=== PATIENT | female | born 1935 | race Caucasian/White ===

== ENCOUNTER 2017-07-09 09:07 | Inpatient (IN) | payer OTHER ==
[~2017-07-09] VITALS: Ht 152.4 cm; Wt 71.7 kg
--- NOTE | 2017-07-09 09:16 | ED MVC/FALL/TRAUMA COMPLAINT ---
History of Present Illness General Chief Complaint: Fall Stated Complaint: BIBA C/C FALL LAST NIGHT Source: family, old records, EMS Exam Limitations: confusion Allergies Coded Allergies: NO KNOWN ALLERGIES (08/12/11) Reconcile Medications No Known Home Medications Triage Nurses Notes Reviewed? yes Onset: Abrupt Duration: constant Timing: recent history Severity: moderate Severity Numbers: 5 Injuries/Fall Location: head Method of Injury: direct blow, fall Loss of Consciousness: unsure HPI: Patient is a 81-year-old female with past medical history of dementia and at baseline confusion, hypertension and anxiety who lives in a private residence by herself in which she is brought in by ambulance for concerns of an unwitnessed fall Patient arrives with son who is the power of immigration attorney states that yesterday at 5 PM he left patient's home in which she was at her baseline and no incident occurred and today they arrived at her residency and noted her to be on the floor in her underwear in the bathroom for an unknown period of time noted bruising to the left forehead and ecchymosis and skin tears to her left and right forearms and elbow. Family indicates that she was a little more confused than her baseline on arrival however after EMS arrived she was at her baseline. History is limited due to patient having dementia Cervical collar was placed by EMS Patient denies any pain (Jhonny Galloway) Vital Signs & Intake/Output Vital Signs & Intake/Output Vital Signs Date Time Temp Pulse Resp B/P B/P Pulse O2 O2 Flow FiO2 Mean Ox Delivery Rate 07/09 1407 98 18 148/90 96 07/09 1128 97.7 85 20 150/90 96 Room Air 07/09 0917 98.6 76 16 147/102 96 (Katia CARTWRIGHT,Caleb Fermin) Past History Travel History Traveled to [place] past 21 day No Medical History Any Pertinent Medical History? see below for history Other Medical Hx: Dementia, hypertension and anxiety Tetanus Vaccine: 08/12/11 Surgical History Surgical History: non-contributory Psychosocial History What is your primary language Tunisian Tobacco Use: Current Not Daily Family History Hx Contributory? No (Jhonny Galloway) Review of Systems Review of Systems Constitutional: Reports: no symptoms. Eyes: Reports: no symptoms. Ears, Nose, Throat, Mouth: Reports: no symptoms. Respiratory: Reports: no symptoms. Cardiovascular: Reports: no symptoms. Gastrointestinal/Abdominal: Reports: no symptoms. Genitourinary: Reports: no symptoms. Musculoskeletal: Reports: see HPI. Skin: Reports: see HPI. Neurological/Psychological: Reports: no symptoms. All Other Systems: Reviewed and Negative (Jhonny Galloway) Physical Exam Physical Exam General Appearance: no apparent distress, alert, comfortable Head: evidence of injury Eyes: Bilateral: normal appearance, PERRL, EOMI. Ears, Nose, Throat, Mouth: hearing grossly normal, moist mucous membrane, Tympanic normal Neck: normal inspection, no midline tenderness, cERVICAL COLLAR IN PLACE Respiratory: normal breath sounds, chest non-tender Cardiovascular: regular rate/rhythm Gastrointestinal: normal bowel sounds, soft, non-tender Extremities: evidence of injury Neurologic/Psych: no motor/sensory deficits, awake Comments: Alert and oriented [address] P[address] Right shoulder decreased active range of motion to all his point tenderness noted (Please note that family states that "she always has chronic shoulder pain and decreased range of motion" On exam no signs of trauma Right elbow mild ecchymosis to lateral epicondyle full active range of motion Right wrist and hand normal inspection nontender Left shoulder normal inspection nontender full active range of motion Left elbow and proximal forearm noted ecchymosis and superficial 2 skin tears no active bleeding generalized point tenderness noted Left wrist and hand normal inspection nontender Bilateral hips normal inspection nontender patient able to perform straight leg raise with no pain Left knee normal inspection generalized point tenderness noted Right knee normal inspection nontender Bilateral ankles normal inspection nontender Core Measures ACS in differential dx? Yes CVA/TIA Diagnosis No Sepsis Present: No Sepsis Focused Exam Completed? No (Jhonny Galloway) Progress Differential Diagnosis: abd injury, C/T/L spine injury, ext injury, ICH, pelvis injury, pnemothorax, spinal cord injury Diagnostic Imaging: Viewed by Me: CT Scan. Radiology Impression: SEE COMMENTS Initial ED EKG: normal p-waves, normal QRS complex, 78 BPM Comments: PATIENT: JUSTYN WATSON PRESENT AGE: 81 PATIENT ACCOUNT NO: [id number] : 35 LOCATION: [facility] ORDERING PHYSICIAN: Jhonny ESTRELLA SERVICE DATE: 07/09/17-1001 EXAM TYPE: RAD - XRY-ELBOW 3 OR MORE VIEWS, L; XRY-ELBOW 3 OR MORE VIEWS, R; XRY -FOREARM, LEFT; XRY-KNEE, LEFT; XRY-SHOULDER COMPLETE-RIGHT EXAMINATION: CR SHOULDER, RIGHT CR ELBOW, RIGHT CR ELBOW, LEFT CR FOREARM, LEFT CR KNEE, LEFT CLINICAL INFORMATION: Unwitnessed fall. Right shoulder, bilateral elbow, and left knee pain. COMPARISON: None TECHNIQUE: 3 views of the right shoulder. 4 views of the right elbow. 3 views of the left elbow. 2 views of the left forearm. 4 views of the left knee. FINDINGS: Right shoulder: Diffuse osteopenia. No acute fracture or dislocation. Superior subluxation of the humeral head seen with abutment of the acromion, suggesting chronic underlying rotator cuff tear. Prominent degenerative change at the acromioclavicular joint with predominantly nonbursal surface spurring associated soft tissue swelling and cystic changes and sclerotic changes across the acromioclavicular joint seen. Included right ribs grossly unremarkable. Right elbow: Diffuse osteopenia. Evaluation limited by IV line. Slight prominence of the anterior fat pad is seen without definite sail sign visualized. No displaced fracture is noted. No unintended radiopaque foreign body in the soft tissues. Left elbow/forearm: Diffuse osteopenia. No acute fracture or dislocation seen involving the left elbow or the left forearm. No abnormal elevation of the fat pad noted. Mild chondrocalcinosis in the radiocapitellar joint. Prominent irregular scalloping of the anterior skin surface of the left forearm is seen, possibly due to soft tissue laceration versus extrinsic compression by overlying bandage. No radiopaque foreign body is seen. Subcutaneous emphysema along the anterior soft tissues of the forearm cannot be excluded. Left knee: Diffuse osteopenia. No acute fracture or dislocation. Severe degenerative change in the patellofemoral compartment with joint space narrowing, spurring and cystic changes seen. Moderate degenerative changes in the medial and lateral femoral compartments. Vacuum phenomenon seen in the lateral femoral compartment. Chondrocalcinosis seen in the medial femoral compartment. Small suprapatellar knee joint effusion suspected though poorly visualized due to slight obliquity of the film. Moderate atherosclerotic calcifications of the arteries in the distal thigh and proximal calf. IMPRESSION: 1. Diffuse osteopenia. No acute fracture of the right shoulder, right elbow, left elbow/forearm and left knee. 2. Suspect extensive soft tissue injury to the anterior left forearm with associated subcutaneous emphysema. Close clinical correlation is requested. No radiopaque foreign body is seen. 3. Prominent degenerative changes in the right acromioclavicular joint and superior subluxation of the right humeral head, suggesting underlying chronic rotator cuff tear. 4. Mild chondrocalcinosis in the left radiocapitellar joint. 5. Moderate to severe degenerative changes in the left knee. DICTATED BY: Thu Richards MD DATE/TIME DICTATED:07/09/171436 LAUNDRY PRESS OPERATOR:MILLER DATE/TIME TRANSCRIBED:07/09/171436 PATIENT: JUSTYN WATSON PRESENT AGE: 81 PATIENT ACCOUNT NO: [id number] : 35 LOCATION: ER ORDERING PHYSICIAN: Jhonny ESTRELLA SERVICE DATE: 07/09/17 EXAM TYPE: CAT - CT CHEST WO IV CONTRAST EXAMINATION: CT CHEST WITHOUT CONTRAST CLINICAL INFORMATION: Chest pain status-post fall. COMPARISON: None. TECHNIQUE: Multidetector volumetric CT imaging of the chest was done. Axial MIP volume rendering provided. Sagittal and coronal reformatted images were obtained. DLP: 625.23 mGy-cm FINDINGS: AQUATIC FACILITY MANAGER: The lungs are grossly clear. There is a moderate thoracic dextroscoliosis. LUNGS: There is mild dependent hypoaeration. No infiltrate or groundglass opacity is seen. There is no generalized increase in peripheral interlobular septal markings. There are mild centrilobular and paraseptal emphysematous changes. The central airways appear patent. MEDIASTINUM: There are thyroid calcifications. There is atherosclerotic change of the great vessel origins, thoracic aorta and coronary arteries. The ascending thoracic aorta is ectatic, measuring 4.3 x 4.2 cm. No thoracic aortic aneurysm is seen. PLEURA: There is no pleural effusion. No pleural mass or thickening. AXILLA: No lymphadenopathy. OSSEOUS STRUCTURES: There is multi-level marked thoracic spondylosis, with an appearance suggesting possible DISH (diffuse idiopathic skeletal hyperostosis). There is an old, healed fracture of the left eighth rib. No acute or aggressive osseous abnormality is seen. IMPRESSION: 1. The lungs appear clear. No infiltrate, contusion, pneumothorax or pleural effusion is seen. 2. There are mild centrilobular paraseptal emphysematous changes. 3. There is no acute fracture. 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 4. There is ectasia of the ascending thoracic aorta, without elva aneurysm formation. Consider surveillance imaging. DICTATED BY: Moe Jimenes MD DATE/TIME DICTATED:07/09/171131 LAUNDRY PRESS OPERATOR:MILLER DATE/TIME TRANSCRIBED:07/09/171131 CONFIDENTIAL, DO NOT COPY WITHOUT APPROPRIATE AUTHORIZATION. <Electronically signed in Other Vendor System> SIGNED BY: Moe Jimenes MD 07/09/17 1143 PATIENT: JUSTYN WATSON PRESENT AGE: 81 PATIENT ACCOUNT NO: [id number] : 35 LOCATION: [facility] ORDERING PHYSICIAN: Jhonny ESTRELLA SERVICE DATE: 07/09/17 EXAM TYPE: CAT - CT ABD & PELVIS W/O IV CONTRAS EXAMINATION: CT ABDOMEN AND PELVIS WITHOUT CONTRAST CLINICAL INFORMATION: Pain status post-post trauma. COMPARISON: CT abdomen and pelvis dated 05/11/2006 (report only). TECHNIQUE: Multidetector volumetric imaging was performed from the superior aspect of the liver through the pubic symphysis. Sagittal and coronal reformatted images were obtained on the technologist's workstation. DLP: 625.23 mGy-cm (chest abdomen and pelvis) FINDINGS: LIVER, GALLBLADDER, AND BILIARY TREE: The liver is normal in size, shape, and attenuation. Within the anterior segment of the right hepatic lobe (4:386), there is a 6 mm low-attenuation probable cyst, which is too small fully characterize with CT. No biliary ductal dilatation is present. The gallbladder is contracted or surgically absent. PANCREAS: Unremarkable. SPLEEN: Unremarkable. ADRENAL GLANDS: Unremarkable. KIDNEYS AND URETERS: The kidneys are normal in size, shape, and attenuation. No hydronephrosis, hydroureter, or calculi seen. There are bilateral renal vascular calcifications. There are subcentimeter low-attenuation exophytic left renal lower pole probable cysts, too small fully characterize with CT. No perinephric stranding. BLADDER: Unremarkable. GASTROINTESTINAL TRACT: There is moderate diverticulosis, without acute diverticulitis. No obstruction, free intraperitoneal air or abscess is seen. The vermiform appendix is not identified with certainty and may be surgically absent. ABDOMINAL WALL: No significant hernia is appreciated. There is very mild anasarca. LYMPH NODES: Normal. VASCULAR: There is marked aortoiliac atherosclerotic change. No abdominal aortic aneurysm is seen. PELVIC VISCERA: There is a calcified uterine fibroid. No adnexal mass is seen. OSSEOUS STRUCTURES: There is multi-level marked lumbar spondylosis, degenerative disc disease and facet arthropathy. There are degenerative changes of the hips. No acute or aggressive osseous abnormality is seen. IMPRESSION: 1. No acute traumatic injuries seen. Of note, the evaluation is performed without the benefit of intravenous contrast, with limited sensitivity for the evaluation of subtle parenchymal laceration. 2. There are subcentimeter low-attenuation hepatic and left renal probable cysts, too small fully characterize with CT. If of clinical concern (i.e. history of hepatocellular disease, known malignancy or hematuria), consider further evaluation with ultrasound. 3. The gallbladder is contracted or surgically absent. Question prior appendectomy. Please correlate with the patient's past surgical history. 4. There is moderate diverticulosis, without acute diverticulitis. 5. There is uterine fibroid disease. 6. There are lumbar degenerative changes. DICTATED BY: Moe Jimenes MD DATE/TIME DICTATED:07/09/171140 LAUNDRY PRESS OPERATOR:MILLER DATE/TIME TRANSCRIBED:07/09/171140 CONFIDENTIAL, DO NOT COPY WITHOUT APPROPRIATE AUTHORIZATION. <Electronically signed in Other Vendor System> SIGNED BY: Moe Jimenes MD 07/09/17 1155 PATIENT: JUSTYN WATSON PRESENT AGE: 81 PATIENT ACCOUNT NO: [id number] : 35 LOCATION: [facility] ORDERING PHYSICIAN: Jhonny ESTRELLA SERVICE DATE: 07/09/17 EXAM TYPE: CAT - CT CERV SPINE WO IV CONTRAST; CT HEAD WO IV CONTRAST EXAMINATION: NONCONTRAST HEAD CT NONCONTRAST CERVICAL SPINE CT INDICATION INFORMATION: Fall with right-sided head strike. COMPARISON: 03/31/2009 TECHNIQUE: Separate noncontrast CT examinations of the head and cervical spine were performed. Coronal and sagittal images were created for each examination at the technologist workstation. DLP: 1537 mGy-cm FINDINGS: Head: There is no evidence of acute intracranial hemorrhage or territorial infarction. No abnormal mass effect or midline shift is seen. Bender to white matter differentiation is well preserved. No extra-axial fluid collections are identified. No hydrocephalus. Proportional prominence of the ventricles and sulcal spaces is consistent with mild volume loss. Patchy periventricular and deep white matter hypoattenuation is consistent with mild small vessel ischemic changes. There is prominent left frontal soft tissue swelling with subgaleal hematoma.. The mastoid air cells and visualized portions of the paranasal sinuses are well aerated. Cervical spine: There is anatomic alignment of the vertebral bodies and posterior elements. The atlantoaxial and atlantooccipital articulations are intact. Vertebral body heights are maintained. There is multilevel intervertebral disc space narrowing with endplate osteophyte formation and facet arthropathy. No evidence of acute fracture. No prevertebral soft tissue swelling. Centrilobular emphysema seen at the lung apices.. Multiple small nodules are seen in the thyroid gland. IMPRESSION: 1. No acute intracranial findings. There is prominent left frontal soft tissue swelling with subgaleal hematoma. 2. No acute fracture or malalignment of the cervical spine. Multilevel degenerative changes are present. DICTATED BY: Danny Argueta MD DATE/TIME DICTATED:07/09/171125 LAUNDRY PRESS OPERATOR:MILLER DATE/TIME TRANSCRIBED:07/09/171125 CONFIDENTIAL, DO NOT COPY WITHOUT APPROPRIATE AUTHORIZATION. <Electronically signed in Other Vendor System> SIGNED BY: Danny Argueta MD 07/09 1137 (Jhonny Galloway) Plan of Care: Orders Procedure Date/time Status CBC WITHOUT DIFFERENTIAL 07/10 06 Active BASIC ELECTROLYTES PLUS BUN&CR 07/10 0600 Active Heart Healthy Diet 07/09 D Active PT Evaluate & Treat 07/09 1422 Active Saline Lock 07/09 1422 Active Pathway - chart 07/09 1422 Active House Staff 07/09 1422 Active Code Status 07/09 1422 Active Misc Message 07/09 1412 Active ED Holding Orders 07/09 1412 Active Vital Signs 07/09 1412 Active Code Status 07/09 1412 Complete Patient Data 07/09 1347 Active Admit to inpatient 07/09 1344 Active Intake & Output 07/09 1115 Active URINALYSIS 07/09 0944 Complete TROPONIN LEVEL 07/09 0944 Complete COMPREHENSIVE METABOLIC PANEL 07/09 0944 Complete CREATINE PHOSPHOKINASE 07/09 0944 Complete CBC WITHOUT DIFFERENTIAL 07/09 0944 Complete EKG 07/09 0844 Active VTE Mechanical Prophylaxis 07/09 UNK Active Laboratory Tests 07/09/17 1158: Urine Color STRAW, Urine Clarity CLEAR, Urine pH 6.5, Ur Specific [place] 1.015, Urine Protein 30 H, Urine Ketones 15 H, Urine Nitrite NEG, Urine Bilirubin NEG , Urine Urobilinogen 1.0, Ur Leukocyte Esterase NEG, Ur Microscopic SEDIMENT EXAMINED, Urine RBC RARE, Urine Hemoglobin SMALL H, Urine Glucose NEG 07/09/17 1010: Anion Gap 14, Estimated GFR > 60, BUN/Creatinine Ratio 27.5 H, Glucose 106 H, Calcium 8.8, Total Bilirubin 0.9, AST 32, ALT 23, Alkaline Phosphatase 91, Creatine Kinase 570 H, Troponin I 0.13 *H, Total Protein 9.2 H, Albumin 4.1, Globulin 5.1 H, Albumin/Globulin Ratio 0.8 L, CBC w Diff NO MAN DIFF REQ, RBC 5.44 H, MCV 85.2, MCH 28.4, MCHC 33.3, RDW 14.9 H, MPV 7.8, Gran % 86.5 H, Lymphocytes % 8.4 L, Monocytes % 5.0, Eosinophils % 0, Basophils % 0.1, Absolute Granulocytes 9.9 H, Absolute Lymphocytes 1.0 L, Absolute Monocytes 0.6, Absolute Eosinophils 0, Absolute Basophils 0 On examination patient is resting comfortably at bedside, family indicates that patient is at her baseline due to dementia X-rays and CT scan will be obtained The skin tear to left lateral forearm and elbow was cleaned with sterile water peroxide and bacitracin Telfa and Kerlix were applied X-rays were resulted no osseous injury noted Pain scan showed no acute process discussed results with patient and family members Patient does have elevated troponin Patient had unremarkable EKG She will be admitted for concerns of unknown etiology of patient being found on the floor syncope versus MECHANICAL fall versus head strike and loss of consciousness (Jhonny Galloway) (Katia CARTWRIGHT,Caleb Fermin) Departure Departure Disposition: STILL A PATIENT Condition: Stable Clinical Impression Primary Impression: Fall Secondary Impressions: Dementia, Elbow contusion, Elevated troponin, Minor head injury Referrals: Umm CARTWRIGHT,MMatthias Interiano (PCP/Family) Departure Forms: Customer Survey General Discharge Information Prescriptions: Current Visit Scripts No Known Home Medications Admission Note Spoke With: Luis CARTWRIGHT,Jus Documentation of Exam: Documentation of any treatments & extenuating circumstances including Concerns Regarding Discharge (functional status, medication knowledge or non-compliance, living conditions, etc.) that warrant an admission rather than observation: [ Patient requires telemetry admission for concerns of elevated troponin and unknown etiology of being found on the bathroom floor today. Patient requires cardiology consultation and repeat cardiac enzymes repeat labs case management competition physical therapy consultation and possible short-term placement] (Freida ESTRELLA,Jhonny) PA/WIND ENERGY PROJECT MANAGER Co-Sign Statement Statement: ED Attending supervision documentation- [X] I saw and evaluated the patient. I have also reviewed all the pertinent lab results and diagnostic results. I agree with the findings and the plan of care as documented in the PA's/WIND ENERGY PROJECT MANAGER's documentation. Patient presents for evaluation of injury sustained status post fall. The cause of her fall is unclear. Physical examination reveals ecchymoses over the left forehead. Otherwise her appears to be no focal neurologic deficit. [] I have reviewed the ED Record and agree with the PA's/WIND ENERGY PROJECT MANAGER's documentation. [] Additions or exceptions (if any) to the PAs/WIND ENERGY PROJECT MANAGER's note and plan are summarized below: [] (Katia CARTWRIGHT,Caleb Fermin)
[2017-07-09 10:32] LABS: ABSOLUTE BASOPHIL COUNT 0 /CUMM (0.0-0.2); ABSOLUTE EOSINOPHIL COUNT 0 /CUMM (0.0-0.7); ABSOLUTE GRANULOCYTE CT 9.9 /CUMM (1.4-6.5); ABSOLUTE MONOCYTE COUNT 0.6 /CUMM (0.10-0.60); BASOPHIL % 0.1 % (0.0-2.0); EOSINOPHIL % 0 % (0-5); HEMATOCRIT 46.3 % (37-47); MEAN CORPUSCULAR HGB 28.4 PG (27.0-31.0); MEAN CORPUSCULAR HGB CONC 33.3 G/DL (33.0-37.0); MEAN CORPUSCULAR VOLUME 85.2 FL (81.0-99.0); MEAN PLATELET VOLUME 7.8 FL (7.4-10.4); PLATELET COUNT 241 /CUMM (130-400); RBC DISTRIBUTION WIDTH 14.9 % (11.5-14.5); RED BLOOD CELL CT 5.44 /CUMM (4.20-5.40); WHITE BLOOD CELL COUNT 11.5 /CUMM (4.8-10.8)
[2017-07-09 11:13] LABS: GRANULOCYTE % 86.5 % (42.2-75.2)
--- NOTE | 2017-07-09 11:37 | CT SCAN REPORT ---
EXAMINATION: NONCONTRAST HEAD CT NONCONTRAST CERVICAL SPINE CT INDICATION INFORMATION: Fall with right-sided head strike. COMPARISON: 03/31/2009 TECHNIQUE: Separate noncontrast CT examinations of the head and cervical spine were performed. Coronal and sagittal images were created for each examination at the technologist workstation. DLP: 1537 mGy-cm FINDINGS: Head: There is no evidence of acute intracranial hemorrhage or territorial infarction. No abnormal mass effect or midline shift is seen. Bender to white matter differentiation is well preserved. No extra-axial fluid collections are identified. No hydrocephalus. Proportional prominence of the ventricles and sulcal spaces is consistent with mild volume loss. Patchy periventricular and deep white matter hypoattenuation is consistent with mild small vessel ischemic changes. There is prominent left frontal soft tissue swelling with subgaleal hematoma.. The mastoid air cells and visualized portions of the paranasal sinuses are well aerated. Cervical spine: There is anatomic alignment of the vertebral bodies and posterior elements. The atlantoaxial and atlantooccipital articulations are intact. Vertebral body heights are maintained. There is multilevel intervertebral disc space narrowing with endplate osteophyte formation and facet arthropathy. No evidence of acute fracture. No prevertebral soft tissue swelling. Centrilobular emphysema seen at the lung apices.. Multiple small nodules are seen in the thyroid gland. IMPRESSION: 1. No acute intracranial findings. There is prominent left frontal soft tissue swelling with subgaleal hematoma. 2. No acute fracture or malalignment of the cervical spine. Multilevel degenerative changes are present.
--- NOTE | 2017-07-09 11:43 | CT SCAN REPORT ---
EXAMINATION: CT CHEST WITHOUT CONTRAST CLINICAL INFORMATION: Chest pain status-post fall. COMPARISON: None. TECHNIQUE: Multidetector volumetric CT imaging of the chest was done. Axial MIP volume rendering provided. Sagittal and coronal reformatted images were obtained. DLP: 625.23 mGy-cm FINDINGS: MEDICAL CLERICAL ASSISTANT: The lungs are grossly clear. There is a moderate thoracic dextroscoliosis. LUNGS: There is mild dependent hypoaeration. No infiltrate or groundglass opacity is seen. There is no generalized increase in peripheral interlobular septal markings. There are mild centrilobular and paraseptal emphysematous changes. The central airways appear patent. MEDIASTINUM: There are thyroid calcifications. There is atherosclerotic change of the great vessel origins, thoracic aorta and coronary arteries. The ascending thoracic aorta is ectatic, measuring 4.3 x 4.2 cm. No thoracic aortic aneurysm is seen. PLEURA: There is no pleural effusion. No pleural mass or thickening. AXILLA: No lymphadenopathy. OSSEOUS STRUCTURES: There is multi-level marked thoracic spondylosis, with an appearance suggesting possible DISH (diffuse idiopathic skeletal hyperostosis). There is an old, healed fracture of the left eighth rib. No acute or aggressive osseous abnormality is seen. IMPRESSION: 1. The lungs appear clear. No infiltrate, contusion, pneumothorax or pleural effusion is seen. 2. There are mild centrilobular paraseptal emphysematous changes. 3. There is no acute fracture. 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 4. There is ectasia of the ascending thoracic aorta, without elva aneurysm formation. Consider surveillance imaging.
--- NOTE | 2017-07-09 11:55 | CT SCAN REPORT ---
EXAMINATION: CT ABDOMEN AND PELVIS WITHOUT CONTRAST CLINICAL INFORMATION: Pain status post-post trauma. COMPARISON: CT abdomen and pelvis dated 05/11/2006 (report only). TECHNIQUE: Multidetector volumetric imaging was performed from the superior aspect of the liver through the pubic symphysis. Sagittal and coronal reformatted images were obtained on the technologist's workstation. DLP: 625.23 mGy-cm (chest abdomen and pelvis) FINDINGS: LIVER, GALLBLADDER, AND BILIARY TREE: The liver is normal in size, shape, and attenuation. Within the anterior segment of the right hepatic lobe (4:386), there is a 6 mm low-attenuation probable cyst, which is too small fully characterize with CT. No biliary ductal dilatation is present. The gallbladder is contracted or surgically absent. PANCREAS: Unremarkable. SPLEEN: Unremarkable. ADRENAL GLANDS: Unremarkable. KIDNEYS AND URETERS: The kidneys are normal in size, shape, and attenuation. No hydronephrosis, hydroureter, or calculi seen. There are bilateral renal vascular calcifications. There are subcentimeter low-attenuation exophytic left renal lower pole probable cysts, too small fully characterize with CT. No perinephric stranding. BLADDER: Unremarkable. GASTROINTESTINAL TRACT: There is moderate diverticulosis, without acute diverticulitis. No obstruction, free intraperitoneal air or abscess is seen. The vermiform appendix is not identified with certainty and may be surgically absent. ABDOMINAL WALL: No significant hernia is appreciated. There is very mild anasarca. LYMPH NODES: Normal. VASCULAR: There is marked aortoiliac atherosclerotic change. No abdominal aortic aneurysm is seen. PELVIC VISCERA: There is a calcified uterine fibroid. No adnexal mass is seen. OSSEOUS STRUCTURES: There is multi-level marked lumbar spondylosis, degenerative disc disease and facet arthropathy. There are degenerative changes of the hips. No acute or aggressive osseous abnormality is seen. IMPRESSION: 1. No acute traumatic injuries seen. Of note, the evaluation is performed without the benefit of intravenous contrast, with limited sensitivity for the evaluation of subtle parenchymal laceration. 2. There are subcentimeter low-attenuation hepatic and left renal probable cysts, too small fully characterize with CT. If of clinical concern (i.e. history of hepatocellular disease, known malignancy or hematuria), consider further evaluation with ultrasound. 3. The gallbladder is contracted or surgically absent. Question prior appendectomy. Please correlate with the patient's past surgical history. 4. There is moderate diverticulosis, without acute diverticulitis. 5. There is uterine fibroid disease. 6. There are lumbar degenerative changes.
--- NOTE | 2017-07-09 14:01 | History & Physical ---
Edgar CARTWRIGHT,[facility] 07/09/17 1401: General Information and HPI MD Statement: I have seen and personally examined JUSTYN GARCIA and documented this H&P. The patient is a 81 year old F who presented with a patient stated chief complaint of [fall]. Source of Information: patient, family, ER data Exam Limitations: dementia History of Present Illness: Ms Garcia is a 81 yo F with PMH of hypertension, dementia and anxiety who was brought in to the ED after family members found her on the floor. History is limited as the patient has dementia and obtained primarily by the family members. The family states that the patient lives by herself. She was last seen in her usual health yesterday around 5pm by her son. This morning when the son came to visit her, he found his mother awake but lying on the floor. Interval events unable to be obtained. The family states that the patient appears to be more confused than her baseline. She has also had a poor appetite lately. The daughter last saw her mother on Saturday at which time she was complaining of diffuse pain all over. The patient has a history of dementia, however, she is not on any medication. She used to be on Donepezil and HCTZ but her medications were discontinued after the patient was found to have consumed all of her medications in her pill box. She smokes 1/2 PPD. Lives by herself and independent at baseline. Allergies/Medications Allergies: Coded Allergies: NO KNOWN ALLERGIES (08/12/11) Home Med list No Known Home Medications Past History Travel History Traveled to [place] past 21 day No Medical History Neurological: dementia, Anxiety Cardiovascular: hypertension Tetanus Vaccine: 08/12/11 Surgical History Surgical History: non-contributory Exam & Diagnostic Data Last 24 Hrs of Vital Signs/I&O Vital Signs Date Time Temp Pulse Resp B/P B/P Pulse O2 O2 Flow FiO2 Mean Ox Delivery Rate 07/09 1407 98 18 148/90 96 07/09 1128 97.7 85 20 150/90 96 Room Air 07/09 0917 98.6 76 16 147/102 96 Intake & Output 07/09 1600 07/09 0800 07/09 0000 Intake Total Output Total Balance Patient 130 lb Weight Weight Reported by Patient Measurement Method Physical Exam General Appearance Alert, Cooperative, Mild Distress, oriented x2 Skin Temp/Moisture Exam: Warm/Dry Sepsis Skin Exam (color): Normal for Ethnicity HEENT bruising on left forehead Cardiovascular Normal S1, Normal S2, No Murmurs Lungs bibasilar crackles Abdomen Soft, No Tenderness Neurological Normal Speech Extremities No Edema Last 24 Hrs of Labs/Gerard: Laboratory Tests 07/09/17 1600: Troponin I 0.15 *H, TSH Pending, Cortisol PM Sample Pending 07/09/17 1158: Urine Color STRAW, Urine Clarity CLEAR, Urine pH 6.5, Ur Specific [place] 1.015, Urine Protein 30 H, Urine Ketones 15 H, Urine Nitrite NEG, Urine Bilirubin NEG , Urine Urobilinogen 1.0, Ur Leukocyte Esterase NEG, Ur Microscopic SEDIMENT EXAMINED, Urine RBC RARE, Urine Hemoglobin SMALL H, Urine Glucose NEG 07/09/17 1010: Anion Gap 14, Estimated GFR > 60, BUN/Creatinine Ratio 27.5 H, Glucose 106 H, Calcium 8.8, Total Bilirubin 0.9, AST 32, ALT 23, Alkaline Phosphatase 91, Creatine Kinase 570 H, Troponin I 0.13 *H, Total Protein 9.2 H, Albumin 4.1, Globulin 5.1 H, Albumin/Globulin Ratio 0.8 L, CBC w Diff NO MAN DIFF REQ, RBC 5.44 H, MCV 85.2, MCH 28.4, MCHC 33.3, RDW 14.9 H, MPV 7.8, Gran % 86.5 H, Lymphocytes % 8.4 L, Monocytes % 5.0, Eosinophils % 0, Basophils % 0.1, Absolute Granulocytes 9.9 H, Absolute Lymphocytes 1.0 L, Absolute Monocytes 0.6, Absolute Eosinophils 0, Absolute Basophils 0 Assessment/Plan Assessment: Ms Garcia is a 81 yo F with PMH of hypertension, dementia and anxiety who was brought in to the ED after family members found her on the floor. Assessment: 1. Mechanical Fall 2. Elevated Troponin 3. Subgalaleal Hematoma 4. Elevated CK 5. History of Hypertension 6. History of Anxiety and Dementia 7. History of COPD As interval events can not be obtained she will require work up of her condition. Infection can worsen delirium but her UA is not impressive for UTI. Her troponin is minimally elevated; she could have had an arrhythmia. Other possibilities include a seizure, syncopal episode or just a mechanical fall. Plan: * Admit patient to telemetry for continous monitoring of arrhythmias. * Trend troponins until they peak. Monitor with serial troponins. * Cardiology consult * Echocardiogram to assess LVEF and wall motion abnormalities * Neuro consult * EEG to r/o seizure * Seizure precautions * Neurochecks q4. * Her imaging shows a soft tissue subgaleal hematoma. If her H&H drops or if her mentation deteriorates will consider reimaging her head. * Check Vit B12 * Vit D is low. Begin supplementation. * PT/OT eval in am * Diet: Regular * DVT Prophylaxis: ALPS only for now. * Code: Full Code As Ranked By This Provider Problem List: 1. Fall Core Measures/Misc (11/04) Acute Coronary Syndrome ACS Diagnosis: No Congestive Heart Failure Congestive Heart Failure Diagnosis No Cerebrovascular Accident CVA/TIA Diagnosis: No VTE (View Protocol) VTE Risk Factors Age>40 No Mechanical VTE Prophylaxis d/t N/A MechProphylax Ordered No VTE Pharm Prophylaxis d/t NA PharmProphylax ordered Sepsis (View protocol) Sepsis Present: No If YES complete Sepsis Event Note If YES complete Sepsis Event Note Cortez CARTWRIGHT,[facility] 07/09/17 1550: Review of Systems Review of Systems Constitutional: Reports: see HPI. Core Measures/Misc (11/04) Sepsis (View protocol) If YES complete Sepsis Event Note If YES complete Sepsis Event Note Resident Review Statement Resident Statement: examined this patient, discussed with international student advisor, agreed with international student advisor, discussed with family Other Findings: HPI: 85-year-old female with hx of multiple comorbidities includes but not limited to dementia and hypertension, who was brought in because of confusion and fall. She was last seen at her baseline, yesterday around 5 PM. This morning her POA went to check on her and found her lying on the floor. The details of the fall cannot be obtained as the patient was found to be confused. She has bruises of the left lateral forehead and multiple injury to her forearms and elbow. Physical Exam: Alert and oriented to place and person but not time. Mildly confused. CN normal 2-12, motor 5/5 X4. CVS NSR, NL S1/S2 with 2/6 systolic murmur, no JVD. Resp crackles at baseline bilateral without wheezing. No lower extremity edema. Significant labs include CK 570, troponin 0.13, leukocytosis up to 11.5, total protein 9.2 and glob[address] 5[address]1. Head CT did not reveals any intracranial pathologies, serial x-rays ruled out any fractures, chest CT did not show any acute pathologies. Assessment: She was found laying on the floor for unknown periods of time, she is also confused and cannot give a detailed history. This can possibly be just a mechanical fall complicated by mild confusion possibly related to underlying dementia and/or brain concussion. Other possible explanation can be infection, seizure, vasovagal attack, hypo-/hyperthyroidism, hypo-/hyper glycemia, ACS, or arrhythmia. Chest imaging was negative for infection, UA ruled out urine infection, troponin was found to be mildly elevated up to 0.13 which is less likely related to ACS. The patient is currently not on any medications even though she is supposed to be on donepezil and hydrochlorothiazide. Currently her vitals stable. Plan * Will admit to telemetry floor * Rule out ACS with serial troponin and EKG * Cardiology consult * Monitor blood pressure, we will control with beta-nasra if needed. * If to be started again on antihypertensive medication she may benefit from ALMA given proteinuria * Check TSH and cortisol level * Check vitamin B12 * Fingerstick q. shift for the first day only to rule out hype/hypoglycemia * Seizure precaution * Neurology consult * We will order EEG if agreed by neurology. * Heart healthy diet * DVT prophylaxis with subcu heparin * Full code, until discussed with Junior Palafox 07/09/17 1554: Core Measures/Misc (11/04) Sepsis (View protocol) If YES complete Sepsis Event Note If YES complete Sepsis Event Note Attending MD Review Statement Attending Statement Attending MD Statement: examined this patient, discuss w/resident/PA/MEDICAL SERVICE REPRESENTATIVE, agreed w/resident/PA/MEDICAL SERVICE REPRESENTATIVE, discussed with family, reviewed EMR data (avail), discussed with nursing, discussed with case mgmt, reviewed images, amended to note Attending Assessment/Plan: 81 o/f poor historian with pmh of dementia/hypertension found by family/son. Last seen was 5 pm. Independent at baseline. She appears to be more confused with hallucinations. Unable to recall events. No obvious focal deficit. Labs with mild leukocytosis and trop 0.13. Imaging with no acute pathology. Subgaleal hematoma. Urine analysis no wbc no nitrites, EKG with sinus rhythm qtc 473. Assessment and plan eleavted cardiac enzmyes likely type 2 PR r/o ACS Fall ELeavted cpk Dementia hypertension Admit to telemetry Neurology consult. Serial cardiac enzymes, ECHO, Cardiology consult. Frequent neurochecks, TSH, vitamin b12, D PT/OT eval. cont supporitve care for dementia, inform POA. Resume home meds if available. gi/dvt prophylaxis full code
--- NOTE | 2017-07-09 15:06 | RADIOLOGY REPORT ---
EXAMINATION: CR SHOULDER, RIGHT CR ELBOW, RIGHT CR ELBOW, LEFT CR FOREARM, LEFT CR KNEE, LEFT CLINICAL INFORMATION: Unwitnessed fall. Right shoulder, bilateral elbow, and left knee pain. COMPARISON: None TECHNIQUE: 3 views of the right shoulder. 4 views of the right elbow. 3 views of the left elbow. 2 views of the left forearm. 4 views of the left knee. FINDINGS: Right shoulder: Diffuse osteopenia. No acute fracture or dislocation. Superior subluxation of the humeral head seen with abutment of the acromion, suggesting chronic underlying rotator cuff tear. Prominent degenerative change at the acromioclavicular joint with predominantly nonbursal surface spurring associated soft tissue swelling and cystic changes and sclerotic changes across the acromioclavicular joint seen. Included right ribs grossly unremarkable. Right elbow: Diffuse osteopenia. Evaluation limited by IV line. Slight prominence of the anterior fat pad is seen without definite sail sign visualized. No displaced fracture is noted. No unintended radiopaque foreign body in the soft tissues. Left elbow/forearm: Diffuse osteopenia. No acute fracture or dislocation seen involving the left elbow or the left forearm. No abnormal elevation of the fat pad noted. Mild chondrocalcinosis in the radiocapitellar joint. Prominent irregular scalloping of the anterior skin surface of the left forearm is seen, possibly due to soft tissue laceration versus extrinsic compression by overlying bandage. No radiopaque foreign body is seen. Subcutaneous emphysema along the anterior soft tissues of the forearm cannot be excluded. Left knee: Diffuse osteopenia. No acute fracture or dislocation. Severe degenerative change in the patellofemoral compartment with joint space narrowing, spurring and cystic changes seen. Moderate degenerative changes in the medial and lateral femoral compartments. Vacuum phenomenon seen in the lateral femoral compartment. Chondrocalcinosis seen in the medial femoral compartment. Small suprapatellar knee joint effusion suspected though poorly visualized due to slight obliquity of the film. Moderate atherosclerotic calcifications of the arteries in the distal thigh and proximal calf. IMPRESSION: 1. Diffuse osteopenia. No acute fracture of the right shoulder, right elbow, left elbow/forearm and left knee. 2. Suspect extensive soft tissue injury to the anterior left forearm with associated subcutaneous emphysema. Close clinical correlation is requested. No radiopaque foreign body is seen. 3. Prominent degenerative changes in the right acromioclavicular joint and superior subluxation of the right humeral head, suggesting underlying chronic rotator cuff tear. 4. Mild chondrocalcinosis in the left radiocapitellar joint. 5. Moderate to severe degenerative changes in the left knee.
--- NOTE | 2017-07-09 16:25 | Cons- Neurology ---
General Information and HPI Consulting Request Date of Consult: 07/09/17 Requested By: Junior Llanos MD Reason for Consult: Found on floor, increased confusion Source of Information: patient, family Exam Limitations: dementia History of Present Illness: 81/F found on the floor in her bathroom unable to arise this AM, elevated CK and also troponins therefore admitted for cardiac monitoring. Pt has no recall of the fall but has a large bruise left forehead Niece reports dementia of several years duration but states her confusion is worse today, and denies there were any changes over the last few days, a hx diffferent to that obtained by housestaff who understood there has been a recent worsening. hx of non-response to aricept years ago, also hx of inappropriate use of meds such that family removed all meds and she takes nothing regularly Allergies/Medications Allergies: Coded Allergies: NO KNOWN ALLERGIES (08/12/11) Home Med List: No Known Home Medications Current Medications: Current Medications Sig/Ke Start time Last Medication Dose Route Stop Time Status Admin Acetaminophen 650 MG Q6P PRN 07/09 1600 AC PO Review of Systems Review of Systems: On ROS she reports a mild headache, no problems with vision, no dizziness, no lateralized weakness or numbness. No chest pain, palpitations or dyspnea. Multiple bruises but denies other falls (except a fall > 1 year ago) Other systems negative. Past History Travel History Traveled to [place] past 21 day No Medical History Neurological: dementia, Anxiety EENT: NONE Cardiovascular: hypertension Respiratory: NONE Gastrointestinal: NONE Hepatic: NONE Renal: NONE Musculoskeletal: NONE Psychiatric: NONE Endocrine: NONE Blood Disorders: NONE Cancer(s): NONE Surgical History Surgical History: non-contributory Exam & Diagnostic Data Vital Signs and I&O Vital Signs Date Time Temp Pulse Resp B/P B/P Pulse O2 O2 Flow FiO2 Mean Ox Delivery Rate 07/09 1545 98.0 110 20 150/80 98 Room Air 07/09 1407 98 18 148/90 96 07/09 1128 97.7 85 20 150/90 96 Room Air 07/09 0917 98.6 76 16 147/102 96 Intake & Output 07/09 1600 07/09 0800 07/09 0000 Intake Total Output Total Balance Patient 130 lb Weight Weight Reported by Patient Measurement Method Physical Exam: Appears generally well but confused in conversation Large bruise left forehead Awake, oriented to name, May, not year or location Immediate recall 3/3 STM 1 min 0/3 no language errors, no evident dysarthria VFF EPMI [id number] V, VII, IX-XII normal motor power normal, no drift tone normal DTR's symmetric, normal, no pathological signs Coordination - fine finger control normal and symmetric Sensation normal Gait not tested Last 48 Hours of Lab Results: Laboratory Tests 07/09 07/09 1158 1010 Chemistry Sodium (137 - 145 mmol/L) 141 Potassium (3.5 - 5.1 mmol/L) 3.7 Chloride (98 - 107 mmol/L) 104 Carbon Dioxide (22 - 30 mmol/L) 23 Anion Gap (5 - 16) 14 BUN (7 - 17 mg/dL) 22 H Creatinine (0.5 - 1.0 mg/dL) 0.8 Estimated GFR (>60 ml/min) > 60 BUN/Creatinine Ratio (7 - 25 %) 27.5 H Glucose (65 - 99 mg/dL) 106 H Calcium (8.4 - 10.2 mg/dL) 8.8 Total Bilirubin (0.2 - 1.3 mg/dL) 0.9 AST (14 - 36 U/L) 32 ALT (9 - 52 U/L) 23 Alkaline Phosphatase (<127 U/L) 91 Creatine Kinase (30 - 135 U/L) 570 H Troponin I (< 0.11 ng/ml) 0.13 *H Total Protein (6.3 - 8.2 g/dL) 9.2 H Albumin (3.5 - 5.0 g/dL) 4.1 Globulin (1.9 - 4.2 gm/dL) 5.1 H Albumin/Globulin Ratio (1.1 - 2.2 %) 0.8 L Hematology CBC w Diff NO MAN DIFF REQ WBC (4.8 - 10.8 /CUMM) 11.5 H RBC (4.20 - 5.40 /CUMM) 5.44 H Hgb (12.0 - 16.0 G/DL) 15.4 Hct (37 - 47 %) 46.3 MCV (81.0 - 99.0 FL) 85.2 MCH (27.0 - 31.0 PG) 28.4 MCHC (33.0 - 37.0 G/DL) 33.3 RDW (11.5 - 14.5 %) 14.9 H Plt Count (130 - 400 /CUMM) 241 MPV (7.4 - 10.4 FL) 7.8 Gran % (42.2 - 75.2 %) 86.5 H Lymphocytes % (20.5 - 51.1 %) 8.4 L Monocytes % (1.7 - 9.3 %) 5.0 Eosinophils % (0 - 5 %) 0 Basophils % (0.0 - 2.0 %) 0.1 Absolute Granulocytes (1.4 - 6.5 /CUMM) 9.9 H Absolute Lymphocytes (1.2 - 3.4 /CUMM) 1.0 L Absolute Monocytes (0.10 - 0.60 /CUMM) 0.6 Absolute Eosinophils (0.0 - 0.7 /CUMM) 0 Absolute Basophils (0.0 - 0.2 /CUMM) 0 Urines Urine Color (YEL,AMB,STR) STRAW Urine Clarity (CLEAR) CLEAR Urine pH (5.0 - 8.0) 6.5 Ur Specific [place] (1.001 - 1.035) 1.015 Urine Protein (NEG,<30 MG/DL) 30 H Urine Ketones (NEG) 15 H Urine Nitrite (NEG) NEG Urine Bilirubin (NEG) NEG Urine Urobilinogen (0.1 - 1.0 EU/dl) 1.0 Ur Leukocyte Esterase (NEG) NEG Ur Microscopic SEDIMENT EXAMINED Urine RBC (0 - 5 /HPF) RARE Urine Hemoglobin (NEG) SMALL H Urine Glucose (N MG/DL) NEG Imaging/Other Studies: CT: Head: There is no evidence of acute intracranial hemorrhage or territorial infarction. No abnormal mass effect or midline shift is seen. Bender to white matter differentiation is well preserved. No extra-axial fluid collections are identified. No hydrocephalus. Proportional prominence of the ventricles and sulcal spaces is consistent with mild volume loss. Patchy periventricular and deep white matter hypoattenuation is consistent with mild small vessel ischemic changes. There is prominent left frontal soft tissue swelling with subgaleal hematoma.. The mastoid air cells and visualized portions of the paranasal sinuses are well aerated. Cervical spine: There is anatomic alignment of the vertebral bodies and posterior elements. The atlantoaxial and atlantooccipital articulations are intact. Vertebral body heights are maintained. There is multilevel intervertebral disc space narrowing with endplate osteophyte formation and facet arthropathy. No evidence of acute fracture. No prevertebral soft tissue swelling. Centrilobular emphysema seen at the lung apices.. Multiple small nodules are seen in the thyroid gland. IMPRESSION: 1. No acute intracranial findings. There is prominent left frontal soft tissue swelling with subgaleal hematoma. 2. No acute fracture or malalignment of the cervical spine. Multilevel degenerative changes are present. Assessment/Plan Assessment: Unwitnessed fall D DX, arryhthmia, vaso-vagal, mechanical, seizure, no sign of CVA, TIA possible Worsening of previously known dementia Concussion, intercurrent toxic encephalopathy ( infection-WBC count increased ) Recommendations: Admit Telemetry Cardiac evaluation EEG not enough information to suggest empiric AED Carotid US OOB chair KWAKU amb with PT KWAKU Social service for ECF placement Consult Acknowledgment - Thank you for your consult request.
[2017-07-09 16:47] VITALS: BP 194/100
--- NOTE | 2017-07-09 17:57 | Event Note ---
Event Note Event Note: Situation: Nurse paged to inform that the patient has unequal blood pressure in her arms. L arm pressure was 194/100 and right arm was 160/102. Brief: Shortly afterwards, patient's blood pressure was manually measured by the resident and found to be 170/100 in both arms. A/R: Consider beta nasra if the patient's blood pressure continues to be elevated. Aneurysm seems unlikely at this time as CT Chest earlier showed ectasia of the ascending thoracic aorta, without elva aneurysm formation.
[2017-07-09 22:55] VITALS: BP 110/60
[2017-07-10 07:03] VITALS: BP 112/82
--- NOTE | 2017-07-10 07:07 | PN- Housestaff ---
[facility] 0707: Subjective Follow-up For: Fall Elevated troponins Complaints: pt unable to provide hx Tele-Events Since Last Visit: NSR with HR 86-100. No overnight events. Subjective: Appears to be comfortable eating breakfast. Denies being in pain. Does not offer any complaints. Review of Systems Constitutional: Reports: no symptoms. Objective Last 24 Hrs of Vital Signs/I&O Vital Signs Date Time Temp Pulse Resp B/P B/P Pulse O2 O2 Flow FiO2 Mean Ox Delivery Rate 07/10 0703 98.9 82 18 112/82 95 Room Air 07/09 2255 97.6 94 18 110/60 97 Room Air 07/09 1654 96 Room Air 07/09 1647 97.9 99 18 194/100 95 Room Air 07/09 1545 98.0 110 20 150/80 98 Room Air 07/09 1407 98 18 148/90 96 07/09 1128 97.7 85 20 150/90 96 Room Air 07/09 0917 98.6 76 16 147/102 96 Intake & Output 07/10 1600 07/10 0800 07/10 0000 Intake Total 440 Output Total 400 Balance -400 440 Intake, Oral 440 Number 1 Bowel Movements Output, Urine 400 Patient 152 lb Weight Weight Bed scale Measurement Method Physical Exam General Appearance: Cooperative, Mild Distress Skin: No Rashes, No Breakdown Skin Temp/Moisture Exam: Warm/Dry Sepsis Skin Exam (color): Normal for Ethnicity HEENT: bruising of left forehead Cardiovascular: Normal S1, Normal S2 Lungs: Clear to Auscultation, Normal Air Movement Abdomen: Soft, No Tenderness Neurological: Normal Speech Extremities: No Edema Last 24 Hrs of Lab/Gerard Results Last 24 Hrs of Labs/Mics: Laboratory Tests 07/10/17 0700: Anion Gap 12, Estimated GFR 53 L, BUN/Creatinine Ratio 29.0 H, Magnesium 2.0, Troponin I 0.14 *H, CBC w Diff NO MAN DIFF REQ, RBC 4.93, MCV 85.6, MCH 28.5, MCHC 33.3, RDW 15.1 H, MPV 8.3, Gran % 79.6 H, Lymphocytes % 14.3 L, Monocytes % 5.3, Eosinophils % 0.3, Basophils % 0.5, Absolute Granulocytes 7.7 H, Absolute Lymphocytes 1.4, Absolute Monocytes 0.5, Absolute Eosinophils 0, Absolute Basophils 0 07/09/17 2215: Troponin I 0.18 *H Assessment/Plan Assessment: Ms Garcia is a 81 yo F with PMH of hypertension, dementia and anxiety who was brought in to the ED after family members found her on the floor. Assessment: 1. Mechanical Fall 2. Elevated Troponin 3. Subgalaleal Hematoma 4. Elevated CK 5. History of Hypertension 6. History of Anxiety and Dementia 7. History of COPD Plan: * Continue monitoring on telemetry for now. * Troponins peaked this morning without EKG changes. * Echocardiogram to assess LVEF and wall motion abnormalities - pending. * EEG to r/o seizure - pending. * Carotid U/S - pending * Seizure precautions * Neurochecks q4. * Her imaging on admission showed a soft tissue subgaleal hematoma. Can be monitored for now. * Vit B12 wnl * Vit D was low. Continue Vit D supplementation * PT/OT eval in am * Diet: Regular * DVT Prophylaxis: ALPS only for now. * Code: Full Code Problem List: 1. Elevated troponin Pain Ratin Pain Location: none Pain Goal: Remain pain free Pain Plan: none Tomorrow's Labs & Rationales: CBC Junior Llanos 07/10/17 1244: Attending MD Review Statement Attending Statement Attending MD Statement: examined this patient, discuss w/resident/PA/CONSULT[employer], agreed w/resident/PA/CONSULT[employer], discussed with family, reviewed EMR data (avail), discussed with nursing, discussed with case mgmt, reviewed images, amended to note Attending Assessment/Plan: Patient with advacned dementia come with mechanical fall of unclear etiology. Patient denies chest pain. She has elevated cardiac enzymes likley type 2 RI. Patient has been seen by neurology and cardiology. EEG and ECHO pending. PT recommends STR vs custodial care facility. Family updated and bedside. Case management on board, Continue with current care..
[2017-07-10 08:16] LABS: ABSOLUTE BASOPHIL COUNT 0 /CUMM (0.0-0.2); ABSOLUTE EOSINOPHIL COUNT 0 /CUMM (0.0-0.7); ABSOLUTE GRANULOCYTE CT 7.7 /CUMM (1.4-6.5); ABSOLUTE LYMPH COUNT 1.4 /CUMM (1.2-3.4); ABSOLUTE MONOCYTE COUNT 0.5 /CUMM (0.10-0.60); BASOPHIL % 0.5 % (0.0-2.0); EOSINOPHIL % 0.3 % (0-5); GRANULOCYTE % 79.6 % (42.2-75.2); HEMATOCRIT 42.2 % (37-47); MEAN CORPUSCULAR HGB 28.5 PG (27.0-31.0); MEAN CORPUSCULAR HGB CONC 33.3 G/DL (33.0-37.0); MEAN CORPUSCULAR VOLUME 85.6 FL (81.0-99.0); MEAN PLATELET VOLUME 8.3 FL (7.4-10.4); PLATELET COUNT 255 /CUMM (130-400); RBC DISTRIBUTION WIDTH 15.1 % (11.5-14.5); RED BLOOD CELL CT 4.93 /CUMM (4.20-5.40); WHITE BLOOD CELL COUNT 9.6 /CUMM (4.8-10.8)
--- NOTE | 2017-07-10 11:51 | Cons- Cardiology ---
General Information and HPI Consulting Request Date of Consult: 07/10/17 Requested By: Junior Llanos MD Reason for Consult: Possible syncope; elevated troponin Source of Information: patient, old records Exam Limitations: poor historian History of Present Illness: This is an 81-year-old female with a past medical history of hypertension and dementia. Patient is a limited historian and part of the HPI was obtained from the medical record. Per the medical record the patient was found by her family lying on the floor; she lives by herself and unclear how long she was on the floor. She does not remember the events and is unable to tell me if she lost consciousness. She apparently was awake but had altered mental status when she was found. She is a limited historian but denied to me having any dyspnea, or palpitations. On my interview with her she was resting comfortably without acute complaint. She was found to have mildly elevated troponin on labs. Allergies/Medications Allergies: Coded Allergies: NO KNOWN ALLERGIES (08/12/11) Home Med List: No Known Home Medications Current Medications: Current Medications Sig/Ke Start time Last Medication Dose Route Stop Time Status Admin Acetaminophen 650 MG Q6P PRN 07/09 1600 AC PO Aspirin 81 MG DAILY 07/10 0900 AC 07/10 PO 0900 Aspirin 325 MG ONCE ONE 07/09 2345 DC 07/10 PO 07/09 2346 0052 Cholecalciferol 1,000 IU DAILY 07/09 1831 AC 07/10 PO 0900 Nicotine 7 MG DAILY 07/09 1745 AC 07/10 TOP 0900 Potassium Chloride 40 MEQ ONCE ONE 07/10 0830 DC 07/10 PO 07/10 0831 0900 Review of Systems Review of Systems: Review of systems as per HPI. The remainder of a 10 point review of systems was reviewed and was otherwise negative. Past History Travel History Traveled to [place] past 21 day No Medical History Blood Transfusion Hx: No Neurological: dementia, Anxiety EENT: NONE Cardiovascular: hypertension Respiratory: NONE Gastrointestinal: NONE Hepatic: NONE Renal: NONE Musculoskeletal: NONE Psychiatric: NONE Endocrine: NONE Blood Disorders: NONE Cancer(s): NONE Surgical History Surgical History: non-contributory Psychosocial History Where Do You Live? Home Smoking Status: Current Everyday Smoker Exam & Diagnostic Data Vital Signs and I&O Vital Signs Date Time Temp Pulse Resp B/P B/P Pulse O2 O2 Flow FiO2 Mean Ox Delivery Rate 07/10 0800 Room Air 07/10 0703 98.9 82 18 112/82 95 Room Air 07/09 2255 97.6 94 18 110/60 97 Room Air 07/09 1654 96 Room Air 07/09 1647 97.9 99 18 194/100 95 Room Air 07/09 1545 98.0 110 20 150/80 98 Room Air 07/09 1407 98 18 148/90 96 Intake & Output 07/10 0800 07/10 0000 07/09 1600 07/09 0807/09 0000 Intake Total 440 Output Total 400 Balance -400 440 Intake, Oral 440 Number 1 Bowel Movements Output, Urine 400 Patient 152 lb 130 lb Weight Weight Bed scale Reported by Patient Measurement Method Physical Exam: General: no apparent distress. Alert. Eyes: No obvious scleral icterus. HEENT: No jugular venous distention; ecchymoses noted Cardiovascular: Normal intensity S1/S2. Regular Respiratory: Lungs clear to auscultation bilaterally. Abdomen: Soft, nontender with no guarding or rebound tenderness. Musculoskeletal: No clubbing or cyanosis noted Skin: warm Neurologic: No gross focal deficits noted. Lymph: No gross lymphadenopathy. Labs/Gerard Results: Laboratory Tests 07/10 07/09 07/09 0700 2215 1600 Chemistry Sodium (137 - 145 mmol/L) 140 Potassium (3.5 - 5.1 mmol/L) 3.0 L Chloride (98 - 107 mmol/L) 105 Carbon Dioxide (22 - 30 mmol/L) 23 Anion Gap (5 - 16) 12 BUN (7 - 17 mg/dL) 29 H Creatinine (0.5 - 1.0 mg/dL) 1.0 Estimated GFR (>60 ml/min) 53 L BUN/Creatinine Ratio (7 - 25 %) 29.0 H Magnesium (1.6 - 2.3 mg/dL) Pending Troponin I (< 0.11 ng/ml) 0.14 *H 0.18 *H 0.15 *H Vitamin B12 (239 - 931 pg/mL) 556 25-OH Vitamin D Total (30 - 100 ng/ml) 21.7 L TSH (0.270 - 4.200 uIU/mL) 1.950 Cortisol PM Sample (1.7 - 14.1) 18.6 H Hematology CBC w Diff NO MAN DIFF REQ WBC (4.8 - 10.8 /CUMM) 9.6 RBC (4.20 - 5.40 /CUMM) 4.93 Hgb (12.0 - 16.0 G/DL) 14.1 Hct (37 - 47 %) 42.2 MCV (81.0 - 99.0 FL) 85.6 MCH (27.0 - 31.0 PG) 28.5 MCHC (33.0 - 37.0 G/DL) 33.3 RDW (11.5 - 14.5 %) 15.1 H Plt Count (130 - 400 /CUMM) 255 MPV (7.4 - 10.4 FL) 8.3 Gran % (42.2 - 75.2 %) 79.6 H Lymphocytes % (20.5 - 51.1 %) 14.3 L Monocytes % (1.7 - 9.3 %) 5.3 Eosinophils % (0 - 5 %) 0.3 Basophils % (0.0 - 2.0 %) 0.5 Absolute Granulocytes (1.4 - 6.5 /CUMM) 7.7 H Absolute Lymphocytes (1.2 - 3.4 /CUMM) 1.4 Absolute Monocytes (0.10 - 0.60 /CUMM) 0.5 Absolute Eosinophils (0.0 - 0.7 /CUMM) 0 Absolute Basophils (0.0 - 0.2 /CUMM) 0 07/09 07/09 1158 1010 Chemistry Sodium (137 - 145 mmol/L) 141 Potassium (3.5 - 5.1 mmol/L) 3.7 Chloride (98 - 107 mmol/L) 104 Carbon Dioxide (22 - 30 mmol/L) 23 Anion Gap (5 - 16) 14 BUN (7 - 17 mg/dL) 22 H Creatinine (0.5 - 1.0 mg/dL) 0.8 Estimated GFR (>60 ml/min) > 60 BUN/Creatinine Ratio (7 - 25 %) 27.5 H Glucose (65 - 99 mg/dL) 106 H Calcium (8.4 - 10.2 mg/dL) 8.8 Total Bilirubin (0.2 - 1.3 mg/dL) 0.9 AST (14 - 36 U/L) 32 ALT (9 - 52 U/L) 23 Alkaline Phosphatase (<127 U/L) 91 Creatine Kinase (30 - 135 U/L) 570 H Troponin I (< 0.11 ng/ml) 0.13 *H Total Protein (6.3 - 8.2 g/dL) 9.2 H Albumin (3.5 - 5.0 g/dL) 4.1 Globulin (1.9 - 4.2 gm/dL) 5.1 H Albumin/Globulin Ratio (1.1 - 2.2 %) 0.8 L Hematology CBC w Diff NO MAN DIFF REQ WBC (4.8 - 10.8 /CUMM) 11.5 H RBC (4.20 - 5.40 /CUMM) 5.44 H Hgb (12.0 - 16.0 G/DL) 15.4 Hct (37 - 47 %) 46.3 MCV (81.0 - 99.0 FL) 85.2 MCH (27.0 - 31.0 PG) 28.4 MCHC (33.0 - 37.0 G/DL) 33.3 RDW (11.5 - 14.5 %) 14.9 H Plt Count (130 - 400 /CUMM) 241 MPV (7.4 - 10.4 FL) 7.8 Gran % (42.2 - 75.2 %) 86.5 H Lymphocytes % (20.5 - 51.1 %) 8.4 L Monocytes % (1.7 - 9.3 %) 5.0 Eosinophils % (0 - 5 %) 0 Basophils % (0.0 - 2.0 %) 0.1 Absolute Granulocytes (1.4 - 6.5 /CUMM) 9.9 H Absolute Lymphocytes (1.2 - 3.4 /CUMM) 1.0 L Absolute Monocytes (0.10 - 0.60 /CUMM) 0.6 Absolute Eosinophils (0.0 - 0.7 /CUMM) 0 Absolute Basophils (0.0 - 0.2 /CUMM) 0 Toxicology Urine Opiates Screen (>2000 NG/ML) < 100 Methadone Screen (>300 NG/ML) < 40 Barbiturate Screen (>200 NG/ML) < 60 Ur Phencyclidine Scrn (>25 NG/ML) < 6.00 Amphetamines Screen (>1000 NG/ML) < 100 U Benzodiazepines Scrn (>200 NG/ML) < 85 Urine Cocaine Screen (>300 NG/ML) < 50 Urine Cannabis Screen (>50 NG/ML) < 5.00 Urines Urine Color (YEL,AMB,STR) STRAW Urine Clarity (CLEAR) CLEAR Urine pH (5.0 - 8.0) 6.5 Ur Specific Morris (1.001 - 1.035) 1.015 Urine Protein (NEG,<30 MG/DL) 30 H Urine Ketones (NEG) 15 H Urine Nitrite (NEG) NEG Urine Bilirubin (NEG) NEG Urine Urobilinogen (0.1 - 1.0 EU/dl) 1.0 Ur Leukocyte Esterase (NEG) NEG Ur Microscopic SEDIMENT EXAMINED Urine RBC (0 - 5 /HPF) RARE Urine Hemoglobin (NEG) SMALL H Urine Glucose (N MG/DL) NEG Diagnostic Data EKG Results Tracing was personally reviewed which shows sinus rhythm at 77 bpm Other Results Head Ct 1. No acute intracranial findings. There is prominent left frontal soft tissue swelling with subgaleal hematoma. 2. No acute fracture or malalignment of the cervical spine. Multilevel degenerative changes are present. Assessment/Plan Assessment/Plan 1. Status post fall of unclear etiology 2. Minimal troponin elevation unlikely due to acute coronary syndrome 3. History of dementia 4. History of hypertension 5. Elevated CPK Patient is a limited historian. Etiology of the fall is unclear but syncope does need to be considered. The minimal troponin elevation is unlikely due to acute coronary syndrome and she reports no chest pain. Agree with obtaining an echocardiogram and monitoring on telemetry. Agree with EEG as recommended by neurology. Jakob Jackson MD [facility] Consult Acknowledgment - Thank you for your consult request.
--- NOTE | 2017-07-10 12:37 | ULTRASOUND REPORT ---
EXAMINATION: DUPLEX BILATERAL CAROTID ULTRASOUND CLINICAL INFORMATION: TIA COMPARISON: None. TECHNIQUE: Duplex bilateral carotid US was performed using real-time ultrasound and Doppler techniques (integrating B-mode 2D vascular images, Doppler spectral analysis and color flow Doppler imaging). These techniques were utilized to interrogate the extracranial carotid and vertebral arteries bilaterally. The degree of stenosis is based off criteria similar to NASCET. FINDINGS: 1. On the right: Plaque is present at the carotid bifurcation but velocity measurements are normal and do not suggest a stenosis of greater than 50% diameter reduction in the right ICA. The distal right ICA could not be seen secondary to technical reasons. The right ECA demonstrates a mild stenosis with peak systolic velocity of under 200 cm/s. The vertebral artery is patent demonstrating antegrade flow. 2. On the left: Plaque is present at the carotid bifurcation but velocity measurements are normal and do not suggest a stenosis of greater than 50% diameter reduction in the left ICA. The left external carotid artery shows no significant stenosis. The vertebral artery is patent demonstrating antegrade flow. IMPRESSION: Plaque is present in the internal carotid arteries but velocity measurements are normal and there is no evidence to suggest a hemodynamically significant stenosis of greater than 50% diameter reduction.
--- NOTE | 2017-07-10 14:03 | ECHOCARDIOGRAM REPORT ---
JUSTYN WATSON Age: 81 : 1935 Gender: F Exam Date: 07/10/2017 10:34 Exam Location: 1 [address] Ht (in): 60 Wt (lb): 153 BSA: 1.74 BP: 194 / 100 Ordering Physician: Raj Hernández MD Referring Physician: Raj Hernández MD Technologist: Daryl Fortune [facility] Room Number: 179-2 Indications: MYOCARDIAL ISCHEMIA/ID Rhythm: Technical Quality: Fair FINDINGS Left Ventricle Left ventricular cavity size normal. Left ventricular wall thickness mildly increased. No obvious regional wall motion abnormalities. Left ventricular ejection fraction is estimated at > 55 %. Abnormal relaxation filling pattern of the left ventricle (stage 1 diastolic dysfunction). Right Ventricle Normal right ventricular size and function. Right Atrium Normal right atrial size. Left Atrium Mild left atrial dilatation. Mitral Valve Mild mitral annular calcification. Hdey-bj-emnrwgoc mitral regurgitation. Aortic Valve No aortic stenosis. Trileaflet aortic valve. Tricuspid Valve Structurally normal tricuspid valve. Trace to mild tricuspid regurgitation. Unable to estimate the right ventricular systolic pressure. Pulmonic Valve Pulmonic valve not well visualized. Pericardium No pericardial effusion. Great Vessels Normal size aortic root. CONCLUSIONS Left ventricular cavity size normal. Left ventricular wall thickness mildly increased. No obvious regional wall motion abnormalities. Left ventricular ejection fraction is estimated at > 55 %. Abnormal relaxation filling pattern of the left ventricle (stage 1 diastolic dysfunction). Normal right ventricular size and function. Mild left atrial dilatation. [id number] mitral regurgitation. No pericardial effusion. Hermelindo Jackson M.D. (Electronically Signed) Final Date: 10 Jul 2017 14:02 MEASUREMENTS (Male / Female) Normal Values 2D ECHO LV Diastolic Diameter PLAX 4.3 cm 4.2 - 5.9 / 3.9 - 5.3 cm LV Systolic Diameter PLAX 2.4 cm 2.1 - 4.0 cm LV Fractional Shortening PLAX 44.2 % 25 - 46 % LV Ejection Fraction 2D Teich 75.7 % IVS Diastolic Thickness 1.2 cm LVPW Diastolic Thickness 1.2 cm LV Relative Wall Thickness 0.6 RV Internal Dim ED PLAX 2.7 cm 1.9 - 3.8 cm LVOT Diameter 1.7 cm Aortic Root Diameter 2.6 cm LA Systolic Diameter LX 3.6 cm 3.0 - 4.0 / 2.7 - 3.8 cm Ascending Aorta Diameter 3.8 cm DOPPLER AV Peak Velocity 124.0 cm/s AV Peak Gradient 6.2 mmHg AV Mean Velocity 78.1 cm/s AV Mean Gradient 3.0 mmHg AV Velocity Time Integral 23.8 cm LVOT Peak Velocity 72.9 cm/s LVOT Peak Gradient 2.1 mmHg LVOT Mean Velocity 48.8 cm/s LVOT Mean Gradient 1.0 mmHg LVOT Velocity Time Integral 17.5 cm LVOT Stroke Volume 39.7 cm AV Area Cont Eq vti 1.7 cm AV Area Cont Eq pk 1.3 cm MV Peak Velocity 93.0 cm/s MV Peak Gradient 3.5 mmHg MV Mean Velocity 51.1 cm/s MV Mean Gradient 1.0 mmHg Mitral E Point Velocity 42.0 cm/s Mitral A Point Velocity 94.3 cm/s Mitral E to A Ratio 0.4 MV PHT Velocity 60.1 cm/s MV Deceleration [place] 107.0 cm/s MV Pressure Half Time 168.5 ms MV Area PHT 1.3 cm MV Deceleration Time 335.0 ms TR Peak Velocity 201.0 cm/s TR Peak Gradient 16.2 mmHg Right Atrial Pressure 5.0 mmHg Pulmonary Artery Systolic Pressu 21.2 mmHg Right Ventricular Systolic Press 21.2 mmHg PV Peak Velocity 88.2 cm/s PV Peak Gradient 3.1 mmHg PV Mean Velocity 65.0 cm/s PV Mean Gradient 2.0 mmHg PV Velocity Time Integral 18.7 cm LV E' Lateral Velocity 5.4 cm/s Mitral E to LV E' Lateral Ratio 7.8 LV E' Septal Velocity 6.5 cm/s Mitral E to LV E' Septal Ratio 6.4
[2017-07-10 15:17] VITALS: BP 138/88
--- NOTE | 2017-07-10 16:29 | PN- Neurology ---
Subjective Subjective: Awake, confused conversation. Per sitter, has visual hallucinations, talks to people not present Review of Systems: denied headacne or pain Objective Vital Signs and I&Os Vital Signs Date Time Temp Pulse Resp B/P B/P Pulse O2 O2 Flow FiO2 Mean Ox Delivery Rate 07/10 1517 97.8 95 18 138/88 96 Room Air 07/10 1338 Room Air 07/10 0800 Room Air 07/10 0703 98.9 82 18 112/82 95 Room Air 07/09 2255 97.6 94 18 110/60 97 Room Air 07/09 1654 96 Room Air 07/09 1647 97.9 99 18 194/100 95 Room Air Intake & Output 07/10 1600 07/10 0800 07/10 0000 07/09 1600 07/09 0800 07/09 0000 Intake Total 840 440 Output Total 300 400 Balance 540 -400 440 Intake, Oral 840 440 Number 1 Bowel Movements Output, Urine 300 400 Patient 152 lb 130 lb Weight Weight Bed scale Reported by Patient Measurement Method Physical Exam: Awake oriented to name and "a hospital " only. No overt dysphasia or dysarthria. no focal signs. Current Medications: Current Medications Sig/Ke Start time Last Medication Dose Route Stop Time Status Admin Acetaminophen 650 MG Q6P PRN 07/09 1600 AC PO Aspirin 81 MG DAILY 07/10 0900 AC 07/10 PO 0900 Aspirin 325 MG ONCE ONE 07/09 2345 DC 07/10 PO 07/09 2346 0052 Cholecalciferol 1,000 IU DAILY 07/09 1831 07/10 PO 0900 Nicotine 7 MG DAILY 07/09 1745 07/10 TOP 0900 Potassium Chloride 40 MEQ ONCE ONE 07/10 0830 DC 07/10 PO 07/10 0831 0900 Results Last 24 Hours of Lab Results: Laboratory Tests 07/10 07/09 0700 2215 Chemistry Sodium (137 - 145 mmol/L) 140 Potassium (3.5 - 5.1 mmol/L) 3.0 L Chloride (98 - 107 mmol/L) 105 Carbon Dioxide (22 - 30 mmol/L) 23 Anion Gap (5 - 16) 12 BUN (7 - 17 mg/dL) 29 H Creatinine (0.5 - 1.0 mg/dL) 1.0 Estimated GFR (>60 ml/min) 53 L BUN/Creatinine Ratio (7 - 25 %) 29.0 H Magnesium (1.6 - 2.3 mg/dL) 2.0 Troponin I (< 0.11 ng/ml) 0.14 *H 0.18 *H Hematology CBC w Diff NO MAN DIFF REQ WBC (4.8 - 10.8 /CUMM) 9.6 RBC (4.20 - 5.40 /CUMM) 4.93 Hgb (12.0 - 16.0 G/DL) 14.1 Hct (37 - 47 %) 42.2 MCV (81.0 - 99.0 FL) 85.6 MCH (27.0 - 31.0 PG) 28.5 MCHC (33.0 - 37.0 G/DL) 33.3 RDW (11.5 - 14.5 %) 15.1 H Plt Count (130 - 400 /CUMM) 255 MPV (7.4 - 10.4 FL) 8.3 Gran % (42.2 - 75.2 %) 79.6 H Lymphocytes % (20.5 - 51.1 %) 14.3 L Monocytes % (1.7 - 9.3 %) 5.3 Eosinophils % (0 - 5 %) 0.3 Basophils % (0.0 - 2.0 %) 0.5 Absolute Granulocytes (1.4 - 6.5 /CUMM) 7.7 H Absolute Lymphocytes (1.2 - 3.4 /CUMM) 1.4 Absolute Monocytes (0.10 - 0.60 /CUMM) 0.5 Absolute Eosinophils (0.0 - 0.7 /CUMM) 0 Absolute Basophils (0.0 - 0.2 /CUMM) 0 Recent Imaging Studies: CT 07/09: There is no evidence of acute intracranial hemorrhage or territorial infarction. No abnormal mass effect or midline shift is seen. Bender to white matter differentiation is well preserved. No extra-axial fluid collections are identified. No hydrocephalus. Proportional prominence of the ventricles and sulcal spaces is consistent with mild volume loss. Patchy periventricular and deep white matter hypoattenuation is consistent with mild small vessel ischemic changes. There is prominent left frontal soft tissue swelling with subgaleal hematoma. ECHO: 07/10: Left ventricular cavity size normal. Left ventricular wall thickness mildly increased. No obvious regional wall motion abnormalities. Left ventricular ejection fraction is estimated at > 55 %. Abnormal relaxation filling pattern of the left ventricle (stage 1 diastolic dysfunction). Normal right ventricular size and function. Mild left atrial dilatation. Uzzu-pa-cpnglvce mitral regurgitation. No pericardial effusion. Carotid dopplers 07/10: atherosclerotic plaque, no significant stenosis Assessment/Plan Assessment: Encephalopathy Worsening of previously known dementia Concussion, intercurrent toxic encephalopathy ( infection-WBC count increased) TSH and B12 OK possible withdrawal? had been on benzodiazepines in May, unclear when stopped Plan: Obtain further history on pre-hospital meds, when stopped EEG Psychiatry consult for assistance in management
[2017-07-11 01:04] VITALS: BP 130/90
[2017-07-11 06:59] VITALS: BP 122/72
--- NOTE | 2017-07-11 07:07 | PN- Housestaff ---
Edgar CARTWRIGHT,[facility] 07/11/17 0706: Subjective Follow-up For: Fall Elevated Troponins ?Syncope/seizure Complaints: pt unable to provide hx Tele-Events Since Last Visit: NSR with HR 75-100. No overnight events. Subjective: Seen and examined. Appears to be comfortable. Denies any pain or discomfort. Has dementia at baseline. Review of Systems Constitutional: Reports: no symptoms. Objective Last 24 Hrs of Vital Signs/I&O Vital Signs Date Time Temp Pulse Resp B/P B/P Pulse O2 O2 Flow FiO2 Mean Ox Delivery Rate 07/11 0659 98.3 85 20 122/72 95 Room Air 07/11 0104 97.7 82 18 130/90 94 Room Air 07/10 1517 97.8 95 18 138/88 96 Room Air 07/10 1338 Room Air 07/10 0800 Room Air Intake & Output 07/11 0800 07/11 0000 07/10 1600 Intake Total 0 360 840 Output Total 100 300 Balance -100 360 540 Intake, Oral 0 360 840 Output, Urine 100 300 Physical Exam General Appearance: Alert, Cooperative, No Acute Distress, oriented x 1 Skin: No Rashes, No Breakdown Skin Temp/Moisture Exam: Warm/Dry Sepsis Skin Exam (color): Normal for Ethnicity HEENT: bruising on left forehead Cardiovascular: Normal S1, Normal S2, No Murmurs Lungs: Normal Air Movement, anterior chest Abdomen: Soft, No Tenderness Neurological: Normal Speech Extremities: No Edema Last 24 Hrs of Lab/Gerard Results Last 24 Hrs of Labs/Mics: Laboratory Tests 07/11/17 0620: Anion Gap 10, Estimated GFR > 60, BUN/Creatinine Ratio 30.0 H, Phosphorus 3.3, Magnesium 1.9 Assessment/Plan Assessment: Ms Garcia is a 81 yo F with PMH of hypertension, dementia and anxiety who was brought in to the ED after family members found her on the floor. Assessment: 1. Mechanical Fall 2. Elevated Troponin 3. Subgalaleal Hematoma 4. Elevated CK 5. History of Hypertension 6. History of Anxiety and Dementia 7. History of COPD Plan: * Discontinue telemetry. * Troponins peaked yesterday without EKG changes. * Echocardiogram - LVEF >55% with no regional wall motion abnormalities. * EEG to r/o seizure - pending. * Carotid U/S - showed no significant stenosis. * Seizure precautions * Psych evaluation - pending * Her imaging on admission showed a soft tissue subgaleal hematoma. Can be monitored for now. * Vit B12 wnl * Vit D was low. Continue Vit D supplementation * PT/OT eval in am * Diet: Regular * DVT Prophylaxis: ALPS only * Code: Full Code Problem List: 1. Fall Pain Ratin Pain Location: none Pain Goal: Remain pain free Pain Plan: none Tomorrow's Labs & Rationales: CBC Junior Llanos 07/11/17 1331: Attending MD Review Statement Attending Statement Attending MD Statement: examined this patient, discuss w/resident/PA/AGENT BASED MODELER, agreed w/resident/PA/AGENT BASED MODELER, discussed with family, reviewed EMR data (avail), discussed with nursing, discussed with case mgmt, reviewed images, amended to note Attending Assessment/Plan: Patient no new complaints, sleeping comfortbaly in her bed. No acute distress. Has hallucinations reported by sitter/staff. Patient with advanced dementia come with fall of unclear etiology. She has elevated cardiac enzymes likley type 2 [place]. Patient has been seen by neurology and cardiology. EEG pending and ECHO >55% with no RWMA. 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 Sitter 1:1, needs pysch evaluation. Family updated and bedside. Case management on board, Discontinue telemetry and transfer to [facility]/med. Needs outpatient geriatrric referral. Continue with current care..
--- NOTE | 2017-07-11 08:47 | Discharge Summary ---
Visit Information Visit Dates Admission Date: 07/09/17 Discharge Date: 07/13/17 Hospital Course Course Attending Physician: Johanna Chapin MD Primary Care Physician: Umm CARTWRIGHT,[facility] Course: Ms Garcia is a 81 year old female with PMHx of HTN, advance dementia, and anxiety. Not on any medications for the past 3 months. She was found on the floor in her bathroom for unknown periods of time with multiple abrasions, scalp hematoma, and confused compare to her baseline dementia, for which family brought her to ED and she was admitted to the cardiac unit. #AMS/Fall: TSH and B12 were WNL. No arrhythmia observed on telemetry. Carotid Doppler showed no significant stenosis. CT head ruled out intracranial acute pathology but showed soft tissue subgaleal hematoma. Echocardiogram showed LV wall thickness and LVEF >55% without any regional wall motion abnormalities. EEG suggestive of chronic dementia or encephalopathy rather than acute process. There was no symptom or signs suggestive of ongoing infection.Her acute delirium most likely multifactorial, include worsening of underlying dementia and fall complicated by head trauma and less likely concussion, lack of sleep may contribute as well. She significantly improve prior to discharge. The patient will be discharged on trazodone and risperidone to a [facility]. #Mild troponin elevation: Peaked at 0.18. It's unlikely due to ACS. The patient was discharged on aspirin. #Low Vitamin D: Discharged on daily vitamin D supplement and instructed to follow with PCP. #Chronic rotator cuff injury: Instructed to use Tylenol every 8 when necessary for pain. She should be careful using NSAIDs given that she currently on aspirin. If NSAID is needed should be taken at least 2 hours after the aspirin. Allergies: Coded Allergies: NO KNOWN ALLERGIES (08/12/11) Significant Procedures: Electroencephalogram Results Interpretation: The waking background is low to moderate amplitude generalized 5-7 hertz theta, relatively stable, with anterior low to moderate amplitude beta frequency activity. A posterior alpha is not seen. Some portions are obscured by muscle and movement artifact. No focal or epileptiform abnormalities. Increased slow activity in drowsiness, no sleep rhythms detected. Hyperventilation deferred, photic stimulation done and unremarkable Impression: Abnormal due to moderately severe slowing, relativel stablethroughtout the test, more consistent with a chronic encephalopathy or dementia than with an acute or active process. No focal or epileptiform abnormalities SERVICE DATE: 07/10/17 EXAM TYPE: US - [id number] DOPPLER FINDINGS: 1. On the right: Plaque is present at the carotid bifurcation but velocity measurements are normal and do not suggest a stenosis of greater than 50% diameter reduction in the right ICA. The distal right ICA could not be seen secondary to technical reasons. The right ECA demonstrates a mild stenosis with peak systolic velocity of under 200 cm/s. The vertebral artery is patent demonstrating antegrade flow. 2. On the left: Plaque is present at the carotid bifurcation but velocity measurements are normal and do not suggest a stenosis of greater than 50% diameter reduction in the left ICA. The left external carotid artery shows no significant stenosis. The vertebral artery is patent demonstrating antegrade flow. IMPRESSION: Plaque is present in the internal carotid arteries but velocity measurements are normal and there is no evidence to suggest a hemodynamically significant stenosis of greater than 50% diameter reduction. SERVICE DATE: 07/10/17- EXAM TYPE: CARD - ECHOCARDIOGRAM FINDINGS Left Ventricle Left ventricular cavity size normal. Left ventricular wall thickness mildly increased. No obvious regional wall motion abnormalities. Left ventricular ejection fraction is estimated at > 55 %. Abnormal relaxation filling pattern of the left ventricle (stage 1 diastolic dysfunction). Right Ventricle Normal right ventricular size and function. Right Atrium Normal right atrial size. Left Atrium Mild left atrial dilatation. Mitral Valve Mild mitral annular calcification. Pvrj-er-dcqktvir mitral regurgitation. Aortic Valve No aortic stenosis. Trileaflet aortic valve. Tricuspid Valve Structurally normal tricuspid valve. Trace to mild tricuspid regurgitation. Unable to estimate the right ventricular systolic pressure. Pulmonic Valve Pulmonic valve not well visualized. Pericardium No pericardial effusion. Great Vessels Normal size aortic root. CONCLUSIONS Left ventricular cavity size normal. Left ventricular wall thickness mildly increased. No obvious regional wall motion abnormalities. Left ventricular ejection fraction is estimated at > 55 %. Abnormal relaxation filling pattern of the left ventricle (stage 1 diastolic dysfunction). Normal right ventricular size and function. Mild left atrial dilatation. Whoy-yx-wexufoyf mitral regurgitation. No pericardial effusion. SERVICE DATE: 07/09/17 EXAM TYPE: RAD - XRY-ELBOW 3 OR MORE VIEWS, L; XRY-ELBOW 3 OR MORE VIEWS, R; XRY -FOREARM, LEFT; XRY-KNEE, LEFT; XRY-SHOULDER COMPLETE-RIGHT FINDINGS: Right shoulder: Diffuse osteopenia. No acute fracture or dislocation. Superior subluxation of the humeral head seen with abutment of the acromion, suggesting chronic underlying rotator cuff tear. Prominent degenerative change at the acromioclavicular joint with predominantly nonbursal surface spurring associated soft tissue swelling and cystic changes and sclerotic changes across the acromioclavicular joint seen. Included right ribs grossly unremarkable. Right elbow: Diffuse osteopenia. Evaluation limited by IV line. Slight prominence of the anterior fat pad is seen without definite sail sign visualized. No displaced fracture is noted. No unintended radiopaque foreign body in the soft tissues. Left elbow/forearm: Diffuse osteopenia. No acute fracture or dislocation seen involving the left elbow or the left forearm. No abnormal elevation of the fat pad noted. Mild chondrocalcinosis in the radiocapitellar joint. Prominent irregular scalloping of the anterior skin surface of the left forearm is seen, possibly due to soft tissue laceration versus extrinsic compression by overlying bandage. No radiopaque foreign body is seen. Subcutaneous emphysema along the anterior soft tissues of the forearm cannot be excluded. Left knee: Diffuse osteopenia. No acute fracture or dislocation. Severe degenerative change in the patellofemoral compartment with joint space narrowing, spurring and cystic changes seen. Moderate degenerative changes in the medial and lateral femoral compartments. Vacuum phenomenon seen in the lateral femoral compartment. Chondrocalcinosis seen in the medial femoral compartment. Small suprapatellar knee joint effusion suspected though poorly visualized due to slight obliquity of the film. Moderate atherosclerotic calcifications of the arteries in the distal thigh and proximal calf. IMPRESSION: 1. Diffuse osteopenia. No acute fracture of the right shoulder, right elbow, left elbow/forearm and left knee. 2. Suspect extensive soft tissue injury to the anterior left forearm with associated subcutaneous emphysema. Close clinical correlation is requested. No radiopaque foreign body is seen. 3. Prominent degenerative changes in the right acromioclavicular joint and superior subluxation of the right humeral head, suggesting underlying chronic rotator cuff tear. 4. Mild chondrocalcinosis in the left radiocapitellar joint. 5. Moderate to severe degenerative changes in the left knee. SERVICE DATE: 07/09/17 EXAM TYPE: CAT - CT CERV SPINE WO IV CONTRAST; CT HEAD WO IV CONTRAST FINDINGS: Head: There is no evidence of acute intracranial hemorrhage or territorial infarction. No abnormal mass effect or midline shift is seen. Bender to white matter differentiation is well preserved. No extra-axial fluid collections are identified. No hydrocephalus. Proportional prominence of the ventricles and sulcal spaces is consistent with mild volume loss. Patchy periventricular and deep white matter hypoattenuation is consistent with mild small vessel ischemic changes. There is prominent left frontal soft tissue swelling with subgaleal hematoma.. The mastoid air cells and visualized portions of the paranasal sinuses are well aerated. Cervical spine: There is anatomic alignment of the vertebral bodies and posterior elements. The atlantoaxial and atlantooccipital articulations are intact. Vertebral body heights are maintained. There is multilevel intervertebral disc space narrowing with endplate osteophyte formation and facet arthropathy. No evidence of acute fracture. No prevertebral soft tissue swelling. Centrilobular emphysema seen at the lung apices.. Multiple small nodules are seen in the thyroid gland. IMPRESSION: 1. No acute intracranial findings. There is prominent left frontal soft tissue swelling with subgaleal hematoma. 2. No acute fracture or malalignment of the cervical spine. Multilevel degenerative changes are present. SERVICE DATE: 07/09/17 EXAM TYPE: CAT - CT ABD & PELVIS W/O IV CONTRAST FINDINGS: LIVER, GALLBLADDER, AND BILIARY TREE: The liver is normal in size, shape, and attenuation. Within the anterior segment of the right hepatic lobe (4:386), there is a 6 mm low-attenuation probable cyst, which is too small fully characterize with CT. No biliary ductal dilatation is present. The gallbladder is contracted or surgically absent. PANCREAS: Unremarkable. SPLEEN: Unremarkable. ADRENAL GLANDS: Unremarkable. KIDNEYS AND URETERS: The kidneys are normal in size, shape, and attenuation. No hydronephrosis, hydroureter, or calculi seen. There are bilateral renal vascular calcifications. There are subcentimeter low-attenuation exophytic left renal lower pole probable cysts, too small fully characterize with CT. No perinephric stranding. BLADDER: Unremarkable. GASTROINTESTINAL TRACT: There is moderate diverticulosis, without acute diverticulitis. No obstruction, free intraperitoneal air or abscess is seen. The vermiform appendix is not identified with certainty and may be surgically absent. ABDOMINAL WALL: No significant hernia is appreciated. There is very mild anasarca. LYMPH NODES: Normal. VASCULAR: There is marked aortoiliac atherosclerotic change. No abdominal aortic aneurysm is seen. PELVIC VISCERA: There is a calcified uterine fibroid. No adnexal mass is seen. OSSEOUS STRUCTURES: There is multi-level marked lumbar spondylosis, degenerative disc disease and facet arthropathy. There are degenerative changes of the hips. No acute or aggressive osseous abnormality is seen. IMPRESSION: 1. No acute traumatic injuries seen. Of note, the evaluation is performed without the benefit of intravenous contrast, with limited sensitivity for the evaluation of subtle parenchymal laceration. 2. There are subcentimeter low-attenuation hepatic and left renal probable cysts, too small fully characterize with CT. If of clinical concern (i.e. history of hepatocellular disease, known malignancy or hematuria), consider further evaluation with ultrasound. 3. The gallbladder is contracted or surgically absent. Question prior appendectomy. Please correlate with the patient's past surgical history. 4. There is moderate diverticulosis, without acute diverticulitis. 5. There is uterine fibroid disease. 6. There are lumbar degenerative changes. SERVICE DATE: 07/09/17 EXAM TYPE: CAT - CT CHEST WO IV CONTRAST FINDINGS: LEAD PHP DEVELOPER: The lungs are grossly clear. There is a moderate thoracic dextroscoliosis. LUNGS: There is mild dependent hypoaeration. No infiltrate or groundglass opacity is seen. There is no generalized increase in peripheral interlobular septal markings. There are mild centrilobular and paraseptal emphysematous changes. The central airways appear patent. MEDIASTINUM: There are thyroid calcifications. There is atherosclerotic change of the great vessel origins, thoracic aorta and coronary arteries. The ascending thoracic aorta is ectatic, measuring 4.3 x 4.2 cm. No thoracic aortic aneurysm is seen. PLEURA: There is no pleural effusion. No pleural mass or thickening. AXILLA: No lymphadenopathy. OSSEOUS STRUCTURES: There is multi-level marked thoracic spondylosis, with an appearance suggesting possible DISH (diffuse idiopathic skeletal hyperostosis). There is an old, healed fracture of the left eighth rib. No acute or aggressive osseous abnormality is seen. IMPRESSION: 1. The lungs appear clear. No infiltrate, contusion, pneumothorax or pleural effusion is seen. 2. There are mild centrilobular paraseptal emphysematous changes. 3. There is no acute fracture. 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 4. There is ectasia of the ascending thoracic aorta, without elva aneurysm formation. Consider surveillance imaging. Pertinent Lab Results: RIGHT KNEE X-RAY ON 07/13/17: FINDINGS: Moderate diffuse osteopenia is noted involving all the visualized bones. Decreased joint space, subchondral sclerosis, chondrocalcinosis, consistent with moderate medial, lateral compartmental osteoarthrosis is present. Large well-corticated bone formation is seen at the superior, lateral aspect of the patella with marked decreased patellofemoral joint space and subchondral sclerosis and osteophytes, consistent with severe patellofemoral osteoarthrosis. Suprapatellar effusion is also noted. Vascular calcifications are present. Overall, there is no significant interval change present. IMPRESSION: 1. Moderate diffuse osteopenia. 2. Moderate osteoarthrosis at the medial, lateral compartments of the left knee and severe osteoarthrosis at the patellofemoral joint with persistent stable suprapatellar effusion, unchanged since 10/02/2013. DICTATED BY: Freda Chopra MD DATE/TIME DICTATED:07/13/171606 ASSOCIATE PROFESSOR OF [employer] MUSIC:MILLER DATE/TIME TRANSCRIBED:07/13/171606 OF NOTE, THE ABOVE X-RAY WAS ACTUALLY DONE ON THE RIGHT KNEE ORDERED, CONFIRMED WITH FLUME MAKER AND PATIENT AND NURSING STAFF. REPORTING WAS MISTAKINGLY WRITTEN LEFT KNEE, AND THE PATIENT AND NURSING STAFF INFORMED ABOUT THE RESULTS. PATIENT IS THUS SAFE TO BE DISCHARGED PLANNED TO [facility]. Disposition Summary Disposition Principal Diagnosis: Fall Additional Diagnosis: Dementia Hypertension Discharge Disposition: Short Term Rehab Discharge Instructions General Discharge Information Code Status: Full Code Patient's Diet: Regular Patient's Activity: As tolerated Follow-Up Instructions/Appts: Please follow up with your PCP within one week of discharge. Medications at Discharge Discharge Medications: Start taking the following new medications: Trazodone HCl (Trazodone HCl) 50 MG TABLET 12.5 Milligram ORAL Every night as needed as needed for Insomnia Qty = 30 No Refills Comments: NOT GIVEN Risperidone (Risperdal) 0.25 MG TABLET 1 Tablet ORAL 2 x Daily as needed as needed for Agitation Qty = 30 No Refills Comments: NOT GIVEN Aspirin (Aspirin*) 81 MG TAB.CHEW 1 Tablet ORAL DAILY Qty = 30 No Refills Comments: Last Taken:07/13/17 Time: 9:00 AM Sennosides/Docusate Sodium (Senna S Tablet) 8.6 MG-50 MG TABLET 1 Tablet ORAL TWICE DAILY Qty = 30 No Refills Comments: Last Taken: 07/13/17 Time: 10:30 AM Cholecalciferol (Vitamin D3) (Vitamin D) 1,000 UNIT TABLET 1 Tablet ORAL DAILY Qty = 30 No Refills Comments: Last Taken: 07/13/17 Time: 9:00 AM Polyethylene Glycol 3350 (Miralax) 17 GRAM/DOSE POWDER 17 Gram ORAL DAILY Qty = 255 No Refills Instructions: mix with water, juice, soda, coffee or tea Comments: Last Taken: 07/12/17 Time: 9:00 AM Acetaminophen (Tylenol Extra Strength) 500 MG TABLET 2 Tablet ORAL EVERY 8 HOURS NEEDED as needed for Pain Qty = 60 No Refills Comments: NOT GIVEN Copies To: Manuel CARTWRIGHT,Hermelindo; Umm CARTWRIGHT,Matthias Jaydon
[2017-07-11 14:34] VITALS: BP 108/66
--- NOTE | 2017-07-11 15:13 | ELECTROENCEPHALOGRAM REPORT ---
Electroencephalogram Report Electroencephalogram Results Date of service: 07/10/17 Attending MD: Junior Llanos MD Precision Machinist: Tyra Hooks Test Utilizes: 10-20 system, 21 lead 18 channel digital recording Pertinent Hx/Physical/Neuro Findings/Clin Diagnosis: Altered mental status Inpatient Medications: Current Medications Sig/Ke Start time Last Medication Dose Route Stop Time Status Admin Acetaminophen 650 MG Q6P PRN 07/09 1600 AC PO Aspirin 81 MG DAILY 07/10 0900 AC 07/11 PO 1053 Cholecalciferol 1,000 IU DAILY 07/09 1831 AC 07/11 PO 1053 Docusate Sodium 100 MG DAILY NEEDED PRN 07/11 0745 AC PO Enoxaparin Sodium 40 MG DAILY 07/11 1209 DC 07/11 SC 1323 Melatonin 5 MG AT BEDTIME 07/11 2100 AC PO Nicotine 7 MG DAILY 07/09 1745 AC 07/11 TOP 1053 Polyethylene Glycol 17 GM DAILY PRN 07/11 0745 AC PO Senna 187 MG AT BEDTIME PRN 07/11 2100 AC PO Interpretation: The waking background is low to moderate amplitude generalized 5-7 hertz theta, relatively stable, with anterior low to moderate amplitude beta frequency activity. A posterior alpha is not seen. Some portions are obscured by muscle and movement artifact. No focal or epileptiform abnormalities. Increased slow activity in drowsiness, no sleep rhythms detected. Hyperventilation deferred, photic stimulation done and unremarkable Impression: Abnormal due to moderately severe slowing, relativel stablethroughtout the test, more consistent with a chronic encephalopathy or dementia than with an acute or active process. No focal or epileptiform abnormalities
--- NOTE | 2017-07-11 15:22 | Cons- Psychiatry ---
Psychiatric Consult Date of Consult: 07/11/17 Reason for Consult: dementia/confusion s/p fall/med management Allergies: Coded Allergies: NO KNOWN ALLERGIES (08/12/11) Past History Past Medical History Neurological: dementia, Anxiety EENT: NONE Cardiovascular: hypertension Respiratory: NONE Gastrointestinal: NONE Hepatic: NONE Renal: NONE Musculoskeletal: NONE Psychiatric: NONE Endocrine: NONE Blood Disorders: NONE Cancer(s): NONE Past Surgical History Surgical History: non-contributory Assessment/Plan Impression: INITIAL PSYCHIATRIC CONSULTATION NOTE Pt is an 81 y/o F with PMH HTN, dementia and anxiety who was BIB family s/p fall. Pt lives by herself, is independent and was found on floor awake. Pt unable to provide details. Consult called for med management as pt is now delirious and hallucinating. Pt is too confused at this time to provide a history. ED Course: Laboratory Tests 07/11/17 0620: Anion Gap 10, Estimated GFR > 60, BUN/Creatinine Ratio 30.0 H, Phosphorus 3.3, Magnesium 1.9 Most recent labs Laboratory Tests 07/12 619 Chemistry Sodium (137 - 145 mmol/L) 142 Potassium (3.5 - 5.1 mmol/L) 3.8 Chloride (98 - 107 mmol/L) 108 H Carbon Dioxide (22 - 30 mmol/L) 24 Anion Gap (5 - 16) 10 BUN (7 - 17 mg/dL) 24 H Creatinine (0.5 - 1.0 mg/dL) 0.8 Estimated GFR (>60 ml/min) > 60 BUN/Creatinine Ratio (7 - 25 %) 30.0 H Phosphorus (2.5 - 4.5 mg/dL) 3.3 Magnesium (1.6 - 2.3 mg/dL) 1.9 PMH: As above PPHx: unobtainable FH: unobtainable SH: Lives home alone. Typically independent. Collateral: Spoke with her son Pa who is POA. I told him my treatment plan for pt and he is amenable. There is no sign she has Lewy Body dementia. Current Medications Sig/Ke Start time Last Medication Dose Route Stop Time Status Admin Acetaminophen 650 MG Q6P PRN 07/09 1600 AC PO Aspirin 81 MG DAILY 07/10 0900 AC 07/11 PO 1053 Cholecalciferol 1,000 IU DAILY 07/09 1831 AC 07/11 PO 1053 Docusate Sodium 100 MG DAILY NEEDED PRN 07/11 0745 AC PO Enoxaparin Sodium 40 MG DAILY 07/11 1209 DC 07/11 SC 1323 Melatonin 5 MG AT BEDTIME 07/11 2100 AC PO Nicotine 7 MG DAILY 07/09 1745 AC 07/11 TOP 1053 Polyethylene Glycol 17 GM DAILY PRN 07/11 0745 AC PO Senna 187 MG AT BEDTIME PRN 07/11 2100 AC PO MSE: Pt is an elderly female lying in bed with eyes closed in NAD. She has a large hematoma on her forehead. She is oriented to self. Does not know year, month or season. Knows her address. Thinks she is home now. Sitter states she was hallucinating talking to people who were not there. Her speech is mostly clear, soft with normal rate. No gross motor abnormalities. Her TP is confused. Her TC is unobtainable because she cannot remember but she seems to feel everyone here is nice. Mood/Affect Insight/Judgment unclear 2/2 to confusion. She is not tearful. Does not endorse pain. Attention and concentration are poor. A/ Pt is an 81 y/o F with baseline dementia who is currently exhibiting fluctuating conscousness, disorientation and perceptual disturbances. Delirium with unknown cause. QTc ~475 -See patient's living will and make sure her code status is correct -ESR, folate, RPR, WAYLON, Lyme, CPK -In a pt with mental status change and fall would MRI w, w/o contrast when appropriate -Would use 0.25 mg Risperdal BID for hallucinations; son Pa is POA he is aware of black box warning and wishes to treat her -Can use trazodone 12.5 mg for sleep. We need to regulate her sleep-wake cycle as much as possible. Please assure her QTc is less than 475. -Avoid deliriogenic medications such as benzodiazepines and anticholinergics -Maintain sitter; patient tries to get out of bed when she has to use the BR -Son would like nursing to try to let pt use bedpan. He is aware pt cannot call on her own due to her confusion. He would like sitter to let RN know if pt appears slightly agitated -Pt needs reassessment when she is back at baseline to assess severity of her dementia for appropriate medication -Pt may need STR---->chcf placement -Of note, the fall in itself can cause delirium in patients with baseline dementia; this is the most likely cause in the absence of other organic findings Please page with any questions Asher #[phone]
--- NOTE | 2017-07-11 15:36 | Incdntl Nt Psy ---
Incidental Note Notation: Add a folate
[2017-07-11 23:21] VITALS: BP 126/68
[2017-07-12 06:40] VITALS: BP 116/66
--- NOTE | 2017-07-12 07:01 | PN- Housestaff ---
Edgar CARTWRIGHT,[facility] 07/12/17 0701: Subjective Follow-up For: Fall Elevated Troponins Tele-Events Since Last Visit: off tele Subjective: Patient seen and examined this morning. Looks comfortable. Feels better except for some back pain. Does not offer complaints. Review of Systems Constitutional: Reports: no symptoms. Objective Last 24 Hrs of Vital Signs/I&O Vital Signs Date Time Temp Pulse Resp B/P B/P Pulse O2 O2 Flow FiO2 Mean Ox Delivery Rate 07/12 0640 98.3 76 18 116/66 94 Room Air 07/11 2321 98.4 80 18 126/68 94 Room Air 07/11 1434 96.6 80 18 108/66 93 Room Air Intake & Output 07/12 0800 07/12 0000 07/11 1600 Intake Total 220 320 Output Total Balance 220 320 Intake, IV 20 Intake, Oral 220 300 Patient 157 lb Weight Weight Bed scale Measurement Method Physical Exam General Appearance: Alert, Cooperative, Mild Distress, oriented x2 Skin: No Rashes, No Breakdown Skin Temp/Moisture Exam: Warm/Dry Sepsis Skin Exam (color): Normal for Ethnicity HEENT: brusing of left forehead Cardiovascular: Normal S1, Normal S2, No Murmurs Lungs: Normal Air Movement, mild inspiratory crackles at bases Abdomen: Soft, No Tenderness Neurological: Normal Speech Extremities: No Edema Last 24 Hrs of Lab/Gerard Results Last 24 Hrs of Labs/Mics: Laboratory Tests 07/12/17 0615: CBC w Diff Pending, WBC Pending, RBC Pending, Hgb Pending, Hct Pending, MCV Pending, MCH Pending, MCHC Pending, RDW Pending, Plt Count Pending, MPV Pending Assessment/Plan Assessment: Ms Garcia is a 81 yo F with PMH of hypertension, dementia and anxiety who was brought in to the ED after family members found her on the floor. Assessment: 1. Mechanical Fall 2. Elevated Troponin 3. Subgalaleal Hematoma 4. Elevated CK 5. History of Hypertension 6. History of Anxiety and Dementia 7. History of COPD Plan: * Patient will require fci care. Likely STR with eventual SNF. * EEG was done yesterday which is suggestive consistent with chronic dementia or encephalopathy than acute process * Her acute delirium was likely precipitated by head trauma. She appears significantly better today with her mental status. * Can discontinue the barger monitro. * Echocardiogram - LVEF >55% with no regional wall motion abnormalities. * Carotid U/S - showed no significant stenosis. * Her imaging on admission showed a soft tissue subgaleal hematoma. Can be monitored for now. * Vit B12 wnl * Vit D was low. Continue Vit D supplementation * Check folate, WAYLON, Lyme, RPR - pending * Diet: Regular * DVT Prophylaxis: ALPS only * Code: Full Code Problem List: 1. Fall Pain Ratin Pain Location: none Pain Goal: Remain pain free Pain Plan: none Tomorrow's Labs & Rationales: Johanna Brar MD 07/12/17 0931: Attending MD Review Statement Attending Statement Attending MD Statement: examined this patient, discuss w/resident/PA/ELEMENTARY SCHOOL SCIENCE TEACHER, agreed w/resident/PA/ELEMENTARY SCHOOL SCIENCE TEACHER, reviewed EMR data (avail), discussed with nursing, discussed with case mgmt, reviewed images Attending Assessment/Plan: 81-year-old female past medical history of fairly advanced dementia, emphysema/ COPD- she is here with a fall, delirium and chronic right shoulder rotator cuff tear and left forearm injury. She is much more alert and appropriate today as per the team. We have her on a low-dose Risperdal when necessary and trazodone when necessary for psychiatry recommendations. The thought is that this is delirium likely triggered from the fall, there is no other obvious organic etiology for the delirium. She had some demand ischemia in the setting of the fall. Right now we will stop the sitter, follow-up with appropriate medical management and the plan is discharge to [facility] in a.m. The EEG showed chronic encephalopathy and her echocardiogram showed stage I diastolic dysfunction with mild to moderate mitral regurgitation.
--- NOTE | 2017-07-12 07:41 | Patient Discharge Instructions ---
Discharge Instructions General Discharge Information You were seen/treated for: Fall Special Instructions: Please follow up with your PCP within one week of discharge. Diet Continue normal diet: Yes Activity Full Activity/No Limits: Yes Acute Coronary Syndrome Inclusion Criteria At DC or during hospital stay patient has or had the following: ACS DIAGNOSIS No Discharge Core Measures Meds if any: Prescribed or Continued at Discharge Meds if any: NOT Prescribed or Continued at Discharge Congestive Heart Failure Inclusion Criteria At DC or during hospital stay patient has or had the following: CHF DIAGNOSIS No Discharge Core Measures Meds if any: Prescribed or Continued at Discharge Meds if any: NOT Prescribed or Continued at Discharge Cerebrovascular accident Inclusion Criteria At DC or during hospital stay patient has or had the following: CVA/TIA Diagnosis No Discharge Core Measures Meds if any: Prescribed or Continued at Discharge Meds if any: NOT Prescribed or Continued at Discharge Venous thromboembolism Inclusion Criteria VTE Diagnosis No VTE Type NONE VTE Confirmed by (Test) NONE Discharge Core Measures - Per Current guidelines, there needs to be overlap - treatment for the first 5 days of Warfarin therapy. - If discharged on Warfarin prior to 5 days of - overlap therapy, the patient will need to be - assessed for post discharge needs including - *Post discharge parental anticoagulation - *Warfarin and/or parental anticoagulation education - *Follow up date to check INR post discharge At least 5 days overlap therapy as Inpatient No Meds if any: Prescribed or Continued at Discharge Note: Overlap Therapy is Warfarin and Anticoagulant Meds if any: NOT Prescribed or Continued at Discharge
[2017-07-12] MEDS ORDERED: RISPERDAL0.25 M1 PO (07:43)
[2017-07-12] MEDS ORDERED: TRAZODONE HCL50 M1 PO ×2 (07:43→09:18)
[2017-07-12 08:04] LABS: ABSOLUTE BASOPHIL COUNT 0 /CUMM (0.0-0.2); ABSOLUTE EOSINOPHIL COUNT 0.1 /CUMM (0.0-0.7); ABSOLUTE GRANULOCYTE CT 7.7 /CUMM (1.4-6.5); ABSOLUTE LYMPH COUNT 1.4 /CUMM (1.2-3.4); ABSOLUTE MONOCYTE COUNT 0.5 /CUMM (0.10-0.60); BASOPHIL % 0.3 % (0.0-2.0); EOSINOPHIL % 1.1 % (0-5); GRANULOCYTE % 79.3 % (42.2-75.2); HEMATOCRIT 41.1 % (37-47); MEAN CORPUSCULAR HGB 28.6 PG (27.0-31.0); MEAN CORPUSCULAR VOLUME 86.8 FL (81.0-99.0); MEAN PLATELET VOLUME 8.1 FL (7.4-10.4); PLATELET COUNT 248 /CUMM (130-400); RBC DISTRIBUTION WIDTH 15.6 % (11.5-14.5); RED BLOOD CELL CT 4.73 /CUMM (4.20-5.40); WHITE BLOOD CELL COUNT 9.7 /CUMM (4.8-10.8)
[2017-07-12] MEDS ORDERED: ASPIRIN81 M4 PO (13:50)
[2017-07-12] MEDS ORDERED: TYLENOL EXTRA500 M2 PO (13:50)
[2017-07-12] MEDS ORDERED: MIRALAX119 GM PO (13:50)
[2017-07-12] MEDS ORDERED: VITAMIN D1000 UNIT PO (13:50)
[2017-07-12] MEDS ORDERED: SENNA S TABLET1 EACH PO (13:50)
[2017-07-12 23:23] VITALS: BP 104/60
[2017-07-13 06:52] VITALS: BP 120/76
--- NOTE | 2017-07-13 09:03 | PN- Housestaff ---
Estrella CARTWRIGHT,[facility] 07/13/17 0902: Subjective Follow-up For: Fall Elevated Troponins Right knee swelling Tele-Events Since Last Visit: Off telemetry Subjective: Patient complaining of right knee swelling. Also reports pain with movement. Denies any fever/chills. Review of Systems Constitutional: Reports: no symptoms. EENTM: Reports: no symptoms. Cardiovascular: Reports: no symptoms. Respiratory: Reports: no symptoms. Gastrointestinal: Reports: no symptoms. Genitourinary: Reports: no symptoms. Musculoskeletal: Reports: joint pain, joint swelling. Skin: Reports: no symptoms. Neurological/Psychological: Reports: no symptoms. Hematologic/Endocrine: Reports: no symptoms. Immunologic/Allergic: Reports: no symptoms. Objective Last 24 Hrs of Vital Signs/I&O Vital Signs Date Time Temp Pulse Resp B/P B/P Pulse O2 O2 Flow FiO2 Mean Ox Delivery Rate 07/13 1202 98.7 82 18 120/76 07/13 0652 98.7 82 18 120/76 96 Room Air 07/12 2323 98.9 82 18 104/60 95 Room Air Intake & Output 07/13 1600 07/13 0800 07/13 0000 Intake Total 400 120 120 Output Total Balance 400 120 120 Intake, Oral 400 120 120 Patient 158 lb Weight Weight Bed scale Measurement Method Physical Exam General Appearance: Alert, Oriented X3, Cooperative, No Acute Distress Skin: No Rashes, No Breakdown Cardiovascular: Regular Rate, Normal S1, Normal S2 Lungs: Normal Air Movement Abdomen: Normal Bowel Sounds, Soft, No Tenderness Extremities: No Clubbing, No Cyanosis, No Edema, right knee swollen, normal range of motion but pain with movement. Slight tenderness to palpation. Current Medications: Current Medications Sig/Ke Start time Last Medication Dose Route Stop Time Status Admin Acetaminophen 650 MG Q6P PRN 07/09 1600 AC PO Aspirin 81 MG DAILY 07/10 0900 07/13 PO 0853 Cholecalciferol 1,000 IU DAILY 07/09 1831 AC 07/13 PO 0853 Docusate Sodium 100 MG DAILY NEEDED PRN 07/11 0745 AC 07/12 PO 0918 Folic Acid 1 MG DAILY 07/11 1806 AC 07/13 PO 0853 Melatonin 5 MG AT BEDTIME 07/11 2100 AC 07/12 PO 2020 Nicotine 7 MG DAILY 07/09 1745 07/13 TOP 0853 Polyethylene Glycol 17 GM DAILY PRN 07/11 0745 AC 07/12 PO 0918 Risperidone 0.25 MG BID PRN 07/11 2145 AC PO Senna 187 MG AT BEDTIME PRN 07/11 2100 AC 07/13 PO 1039 Trazodone HCl 12.5 MG AT BEDTIME PRN 07/11 2200 AC PO Last 24 Hrs of Lab/Gerard Results Last 24 Hrs of Labs/Mics: Laboratory Tests 07/13/17 0725: Anion Gap 8, Estimated GFR > 60, BUN/Creatinine Ratio 32.5 H Assessment/Plan Assessment: Ms Garcia is a 81 yo F with PMH of hypertension, dementia and anxiety who was brought in to the ED after family members found her on the floor. 1. Mechanical Fall 2. Elevated Troponin 3. Subgalaleal Hematoma 4. Elevated CK 5. History of Hypertension 6. History of Anxiety and Dementia 7. History of COPD 8. Right knee pain and swelling Plan: * EEG was done on 07/11 consistent with chronic dementia or encephalopathy than acute process. * Her acute delirium was likely precipitated by head trauma. Mental status significantly improved. * Echocardiogram - LVEF >55% with no regional wall motion abnormalities. * Carotid U/S - showed no significant stenosis. * Her imaging on admission showed a soft tissue subgaleal hematoma. Can be monitored for now. * Vit B12 and folate wnl * Vit D was low. Continue Vit D supplementation * WAYLON, Lyme, RPR - negative * Will obtain x-ray of right knee; results pending. * Diet: Regular * DVT Prophylaxis: ALPS only * Code: Full Code Problem List: 1. Fall 2. Elevated troponin Pain Ratin Pain Location: NA Pain Goal: Remain pain free Pain Plan: Pain pathway Tomorrow's Labs & Rationales: None Jimmy CARTWRIGHT,[facility] 07/13/17 1349: Attending MD Review Statement Attending Statement Attending MD Statement: examined this patient, discuss w/resident/PA/ORACLE IAM CONSULTANT, agreed w/resident/PA/ORACLE IAM CONSULTANT, reviewed EMR data (avail), discussed with nursing, discussed with case mgmt, reviewed images, amended to note Attending Assessment/Plan: 81-year-old female with past medical history significant for advanced dementia was initially admitted to the floor status post fall for unclear etiology. Patient was evaluated by the building custodian and neurologist. Labs and imaging reviewed in detail. Patient was also evaluated by the PT and recommended short- term rehabilitation. Patient was seen and examined and is stable to be discharged to [facility].
[2017-07-13 12:02] VITALS: BP 120/76
[2017-07-13 15:08] VITALS: BP 124/70
--- NOTE | 2017-07-13 16:36 | RADIOLOGY REPORT ---
EXAMINATION: XR KNEE, RIGHT CLINICAL INFORMATION: 81-year-old female with right knee swelling, pain. COMPARISON: Most recent prior right knee radiograph done on 10/02/2013. TECHNIQUE: Four views, 5 images of the right knee. FINDINGS: Moderate diffuse osteopenia is noted involving all the visualized bones. Decreased joint space, subchondral sclerosis, chondrocalcinosis, consistent with moderate medial, lateral compartmental osteoarthrosis is present. Large well-corticated bone formation is seen at the superior, lateral aspect of the patella with marked decreased patellofemoral joint space and subchondral sclerosis and osteophytes, consistent with severe patellofemoral osteoarthrosis. Suprapatellar effusion is also noted. Vascular calcifications are present. Overall, there is no significant interval change present. IMPRESSION: 1. Moderate diffuse osteopenia. 2. Moderate osteoarthrosis at the medial, lateral compartments of the left knee and severe osteoarthrosis at the patellofemoral joint with persistent stable suprapatellar effusion, unchanged since 10/02/2013.
== END 2017-07-13 18:20 | DRG 884 ==
LOC: ERH 09:07 → 1NO 13:44 → ERHI 13:44 → ENRESERV 14:47 → ENTRNSPT 15:53 → EDTRNSPT 15:57 → EDTRNSPTSTS 15:57 → CMPTRNSPT 16:20 → 1NO 16:32 → ENPENDDIS 07-13 17:21 → 1NO 07-13 18:20
PROVIDERS: Internal Medicine; Physician Assistant
DX: F03.90 Unspecified dementia, unspecified severity, without behavioral disturbance, psychotic disturbance, mood disturbance, and anxiety (principal); F05 Delirium due to known physiological condition; J44.9 Chronic obstructive pulmonary disease, unspecified; S00.83XA Contusion of other part of head, initial encounter; W19.XXXA Unspecified fall, initial encounter; Y92.009 Unspecified place in unspecified non-institutional (private) residence as the place of occurrence of the external cause; R41.0 Disorientation, unspecified; R44.1 Visual hallucinations; S46.011D Strain of muscle(s) and tendon(s) of the rotator cuff of right shoulder, subsequent encounter; X58.XXXD Exposure to other specified factors, subsequent encounter; S50.12XA Contusion of left forearm, initial encounter; S50.11XA Contusion of right forearm, initial encounter; G89.29 Other chronic pain; I10 Essential (primary) hypertension; F17.200 Nicotine dependence, unspecified, uncomplicated
CPT/HCPCS: 1NSP; 86618; 36415; 36592; 73030-RT; 73080-LT; 73080-RT; 73090-LT; 73560-LT; 73562-RT; 74176; 80307; 81001; 82436; 87086; 93005; 93010; 93306; 95816; 97110-GO; 97161-GP; 97530-GO; J1650; J3490